=== PATIENT | male | born 1945 | race Caucasian/White ===

== ENCOUNTER 2018-12-14 09:18 | Emergency (ER) | payer OTHER ==
--- OUTSIDE RECORDS SUMMARY | 2018-12-14 09:21 | XMS REPORT ---
:1945 Author Organization eClinicalWorks Care Team Providers Name Role Phone Romero, Na Provider Role Unavailable Allergies No Known Allergies Problems Problem Type Condition Code Onset Dates Condition Status Problem Thrombocytopenia D69.6 Active Problem Family history of colon cancer Z80.0 Active Problem HTN (hypertension) I10 Active Assessment HTN (hypertension) I10 Active Problem Solitary lung nodule R91.1 Active Medications Medication Code System Code Instructions Start End Date Status Dosage Date Rony [facility] 62232831945 25 MG Orally Once Active TAKE 1 a day TABLET BY MOUTH EVERY DAY Results No Known Results Summary Purpose eClinicalWorks Submission
--- OUTSIDE RECORDS SUMMARY | 2018-12-14 09:21 | XMS REPORT ---
:1945 Author Organization [employer] Care Team Providers Name Role Phone Romero, Na Provider Role Unavailable Allergies, Adverse Reactions, Alerts Substance Reaction Event Type N.K.D.A. Info Not Available Non Drug Allergy Problems Problem Type Condition Code Onset Dates Condition Status Problem Thrombocytopenia D69.6 Active Problem Family history of colon cancer Z80.0 Active Problem HTN (hypertension) I10 Active Assessment Adult general medical exam Z00.00 Active Assessment Screening for colon cancer Z12.11 Active Problem Solitary lung nodule R91.1 Active Medications Medication Code System Code Instructions Start End Date Status Dosage Date Aspirin 81 [facility] 27690943396 81 MG Orally Once Active 1 tablet a day Cozaar [facility] 78981975427 25 MG Active TAKE 1 TABLET BY MOUTH EVERY DAY Results No Known Results Summary Purpose eClinicalWorks Submission
--- OUTSIDE RECORDS SUMMARY | 2018-12-14 09:21 | XMS REPORT ---
:1945 Author Organization [facility] Address [address] [place] [address] [address] [place] [address] Care Team Providers Name Role Phone Unavailable Unavailable Unavailable Payers Payer Name Policy Type Policy Number Effective Date Expiration Date Problems This patient has no known problems. Allergies, Adverse Reactions, Alerts Allergy Allergy Status Severity Reaction(s) Onset Inactive Treating Comments Name Type Date Date Clinician No Known DA Active U 2018-11 Allergies -03 00:00:0 0 No Known DA Active U 2017-01 Allergies -13 00:00:0 0 Medications This patient has no known medications. 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 No acute fracture is visualized. IMPRESSION: Postoperative exam as above. at 1842 Reported and signed by: Salvatore Shin M.D. CC: Katelynn Perez MD Technologist: CHRIS BAPTISTE (RT.R) Transcribed D/ (722) Sara [facility] NAME: AVERY BROUSSARD [address] [facility] PHYS: Katelynn Lee : 1945 AGE: 73 SEX: M [place], [place] [address] LOC: Y.502 A PHONE #: [phone] EXAM DATE: 12/01/2018 STATUS: DIS IN FAX #: [phone] RAD #: D/C DT 12/02/2018 PAGE 1 Signed Report Patient Name: AVERY BROUSSARD Unit No: [id number] EXAMS: CPT CODE: [id number] XR KNEE 1 OR 2 V RT [id number] <Continued> Orig Print D/T: S: 12/04/2018 (1845) [facility] NAME: AVERY BROUSSARD [address] [facility] PHYS: Katelynn Lee : 1945 AGE: 73 SEX: M [place] [address] LOC: Y.502 A PHONE #: [phone] EXAM DATE: 12/01/2018 STATUS: DIS IN FAX #: [phone] RAD #: D/C DT 12/02/2018 PAGE 2 Signed Report BASIC METABOLIC PANEL 2018-12-02 07:58:00 Test Item Value Reference Range Comments SODIUM (test code=NA) 139 mmol/L 136-145 POTASSIUM (test code=K) 4.3 mmol/L 3.5-5.1 CHLORIDE (test code=CL) 104.0 mmol/L 98-107 CARBON DIOXIDE (test code=CO2) 26.7 mmol/L 21-32 GLUCOSE (test code=GLU) 147 mg/dL 70-110 BLOOD UREA NITROGEN (test 14 mg/dL 7-18 code=BUN) GLOMERULAR FILTRATION RATE (test 70.2 >60 Unit of measure: mL/min/1.73 code=GFR) [id number] Range:Healthy Adults >90 mL/min/1.73 m2 For Chronic Kidney Disease: Stage II Mild Decrease in GFR 60-90 Stage III Moderate Decrease in GFR 30-59 Stage IV Severe Decrease in GFR 15-29 Stage V Kidney Failure <15 CREATININE (test code=CREAT) 1.04 mg/dL 0.55-1.30 CALCIUM (test code=CA) 7.5 mg/dL 8.2-10.1 HGB [id number] 07:29:00 Test Item Value Reference Range Comments HEMOGLOBIN (test code=HGB) 12.3 g/dL 12-16 HEMATOCRIT (test code=HCT) 36.6 % 37-47 - USG NDL PLACEMENT (Bxg/Asp)2018-11-20 09:49:00 Patient Name: AVERY BROUSSARD Unit No: [id number] EXAMS: CPT CODE: [id number] USG NDL PLACEMENT (Bxg/Asp) 76831 INDICATION: Right knee pain. PROCEDURE: Ultrasound guided cryoneurolysis of the anterior femoral cutaneous nerve and superior and inferior branches of the infrapatellar . APIGEE DEVELOPER: Dr. Cardoso. MEDICATIONS: 1 % Lidocaine local anesthesia CONTRAST: None. COMPLICATION: None immediately evident. DESCRIPTION: After the procedure, including indication and potential complications had been discussed with the patient and questions answered, written informed consent was obtained. The patient was then taken to the ultrasound suite and placed on the tablein supine position where skin of the right knee was evaluated sonographically. The skin was marked using ultrasound guidance. The skin was then prepped and draped sterilely. A time out was performed. After achieving 1% Lidocaine local anesthesia, the Iovera device, composed of three hollow closed-tip 27 gauge 6 mm needles, was introduced percutaneously atthe target site as marked sonographically. At each target site, the Iovera device was activated over a 60 second cycle, creating a cold zone at the target site. Following each cycle, the probe was removed and advanced to the next target site. No immediate complication were observed. The patient tolerated the procedure well and was subsequently discharged in stable condition. Preprocedural pain level: 7/ 10 Postprocedural painlevel: 1/ 10 IMPRESSION: Cryoneurolysis of the anterior femoral cutaneous nerve and superior and inferior branches of the infrapatellar as above. at 0949 Reported and signed by : Katherine Cardoso MD CC: Katelynn Perez MD Technologist: SOPHIE RETANA, FRANCES, RVT Transcribed D/T: 2018 (0959) [facility] NAME: AVERY BROUSSARD [address] [facility] PHYS: Katelynn Lee : 1945 AGE: 73 SEX: M [place] [address] LOC: Y.RAD PHONE #: [phone] EXAM DATE: 11/17/2018 STATUS: DEP CLI FAX #: [phone] RAD #: D/C DT PAGE 1 Signed Report Patient Name: AVERY BROUSSARD Unit No: [id number] EXAMS: CPT CODE: [id number] USG NDL PLACEMENT (Bxg/Asp) 20608 <Continued> Orig Print D/T: S: 11/20/2018 (0952) [facility] NAME: AVERY BROUSSARD [address] [facility] PHYS: Katelynn Lee : 1945 AGE: 73 SEX : M [place] [address] LOC: Y.RAD PHONE #: [phone] EXAM DATE: 11/17/2018 STATUS: DEP CLI FAX #: [phone] RAD #: D/C DT PAGE 2 Signed ReportGLYCOSYLATED HEMOGLOBIN (HA1C)2018-11-08 20:55: 00 Test Item Value Reference Range Comments GLYCOSYLATED HEMOGLOBIN 5.3 % 4.8-5.9 Any condition that shortens (HA1C) (test code=GLYHGB) erythocyte survival or decreasesmean erythrocyte age (e.g., recovery from acute blood loss,hemolytic anemai) will falsely lower HGBA1c resultsregardless of the method used. HGBA1c results frompatients with HbSS, HbCC and HbSc must be interpreted withcaution given the pathological processes, including anemia,increased red cell turnover, transfusion requirements, thatadversely impact HGBA1c as a marker of long-term glycemiccontrol. Alternative forms of testing such as fructosamineshould be considered for these patients.DONE AT: [address] [address] COMPREHENSIVE METABOLIC [id number] 12:24:00 Test Item Value Reference Range Comments SODIUM (test code=NA) 139 mmol/L 136-145 POTASSIUM (test code=K) 4.4 mmol/L 3.5-5.1 CHLORIDE (test code=CL) 103.0 mmol/L 98-107 CARBON DIOXIDE (test code=CO2) 29.9 mmol/L 21-32 GLUCOSE (test code=GLU) 93 mg/dL 70-110 BLOOD UREA NITROGEN (test 18 mg/dL 7-18 code=BUN) GLOMERULAR FILTRATION RATE 77.0 >60 Unit of measure: (test code=GFR) mL/min/1.73 [id number] Range:Healthy Adults >90 mL/min/1.73 m2 For Chronic Kidney Disease: Stage II Mild Decrease in GFR 60-90 Stage III Moderate Decrease in GFR 30-59 Stage IV Severe Decrease in GFR 15-29 Stage V Kidney Failure <15 CREATININE (test code=CREAT) 0.96 mg/dL 0.55-1.30 TOTAL PROTEIN (test code=PROT) 7.3 g/dL 6.4-8.2 ALBUMIN (test code=ALB) 4.0 g/dL 3.4-5.0 GLOBULIN (test code=GLOB) 3.3 g/dL 2.2-4.2 ALBUMIN/GLOBULIN RATIO (test 1.2 0.7-2.0 code=A/G) CALCIUM (test code=CA) 8.7 mg/dL 8.2-10.1 BILIRUBIN TOTAL (test 0.78 mg/dL 0.2-1.00 code=BILT) SGOT/AST (test code=AST) 26.0 U/L 15-37 SGPT/ALT (test code=ALT) 25.0 U/L 12-78 Please note new normal range. ALKALINE PHOSPHATASE TOTAL 97 U/L 46-116 (test code=ALKP) PROTHROMBIN [id number] 12:22:00 Test Item Value Reference Range Comments PROTHROMBIN TIME PATIENT 11.9 secs 10.1-12.5 (test code=PTP) INTERNATIONAL NORMAL RATIO 1.05 <2.0 RECOMMENDED THERAPEUTIC RANGE (test code=INR) FOR ORAL ANTICOAGULANTTREATMENT: CONDITION INRProphylaxis of venous thrombosis in 2.0 - 3.0 high-risk medical or surgical patientsTreatment of venous thrombosis 2.0 - 3.0Prevention of embolism 2.0 - 3.0Prevention of recurrent embolism, or 3.0 - 4.5 patients with mechanical prosthetic intravascular valves IS PATIENT ON ANTICOAGULANTS ? NHas Lab been notified if Patient is on Heparin Drip? NOTHROMBOPLASTIN TIME [id number] 12:22:00 Test Item Value Reference Range Comments PTT ACTIVATED (test code=APTT) 32.2 secs 24.9-37.0 IS PATIENT ON ANTICOAGULANTS ? NHas Lab been notified if Patient is on Heparin Drip? NOURINALYSIS [id number] 12:15:00 Test Item Value Reference Range Comments UA COLOR (test code=COLU) YELLOW YELLOW UA APPEARANCE (test code=APPU) CLEAR CLEAR UA GLUCOSE DIPSTICK (test code=DGLUU) NEGATIVE NEGATIVE UA BILIRUBIN DIPSTICK (test code=BILU) NEGATIVE NEGATIVE UA KETONE DIPSTICK (test code=KETU) NEGATIVE mg/dL NEGATIVE UA SPECIFIC GRAVITY (test code=SGU) 1.015 1.003-1.035 UA BLOOD DIPSTICK (test code=JAI) NEGATIVE NEGATIVE UA PH DIPSTICK (test code=FELIX) 5.5 >6.5 UA PROTEIN DIPSTICK (test code=PROU) NEGATIVE mg/dL NEG UA UROBILINIOGEN DIPSTICK (test code=URO) 0.2 mg/dL NORM UA NITRITE DIPSTICK (test code=ARANZA) NEGATIVE NEG UA LEUKOCYTE ESTERASE DIPSTICK (test NEGATIVE NEGATIVE code=LEUU) UA WBC (test code=WBCU) <5.0 /HPF 0-2 UA RBC (test code=RBCU) 0-2 /HPF 0-2 UA EPITHELIAL CELLS (test code=EPIU) RARE /HPF 0-2 UA BACTERIA (test code=BACU) FEW /HPF NONE CBC W/AUTO [id number] 12:09:00 Test Item Value Reference Range Comments WHITE BLOOD CELL (test code=WBC) 4.1 K/mm3 5.7-10.5 RED BLOOD CELL (test code=RBC) 4.89 M/mm3 4.2-5.4 HEMOGLOBIN (test code=HGB) 15.7 g/dL 12-16 HEMATOCRIT (test code=HCT) 47.3 % 37-47 MEAN CELL VOLUME (test code=MCV) 97 fL 80-98 MEAN CELL HGB (test code=MCH) 32.1 pg 27-34 MEAN CELL HGB CONCENTRATION (test code=MCHC) 33.2 g/dL 30.8-34.1 RED CELL DISTRIBUTION WIDTH (test code=RDW) 13.2 % 11-16 PLT (test code=PLT) 191 K/mm3 130-400 MEAN PLATELET VOLUME (test code=MPV) 11.1 fL 8.9-12.1 NEUTROPHIL % (test code=NT%) 45.7 % 45-70 LYMPHOCYTE % (test code=LY%) 43.9 % 20-40 MONOCYTE % (test code=MO%) 8.5 % 3-10 EOSINOPHIL % (test code=EO%) 0.7 % 1-5 BASOPHIL % (test code=BA%) 1.0 % 0.0-1.1 NEUTROPHIL # (test code=NT#) 1.87 K/mm3 2.00-7.50 LYMPHOCYTE # (test code=LY#) 1.80 K/mm3 1.50-4.00 MONOCYTE # (test code=MO#) 0.35 K/mm3 0.2-0.8 EOSINOPHIL # (test code=EO#) 0.03 K/mm3 0.04-0.4 BASOPHIL # (test code=BA#) 0.04 K/mm3 0.02-0.10 MANUAL DIFF REQUIRED (test code=MDIFF) NO MANUAL DIFF NUCLEATED RED BLOOD CELL (test code=NRBC) 0 % 0-0 - XR FLUORO [id number] 10:10:00 Patient Name: AVERY BROUSSARD Unit No: [id number] EXAMS: CPT CODE: [id number] XR FLUORO NDL 00100 FLUOROSCOPICALLY GUIDED right prosthetic knee joint ASPIRATION COMMENT: After informed consent was obtained a 22-gauge needle is inserted into right prosthetic knee joint under fluoroscopic control using sterile technique. 10 mL of fluid was aspirated. This is sent to the lab for analysis. The patient tolerated the procedure well. 0.5 minutes of fluoroscopy time was used on this exam. at 1010 Reported and signed by: Katherine Cardoso MD CC: Mono Messina Technologist: MARTHA SANDOVAL RT(R) Transcribed D/ (1010) tSARA [facility] NAME: AVERY BROUSSARD[address] [facility] PHYS: Mono Murphy : 1945 AGE: 73 SEX: M [place], [place] [address] LOC: Y.RAD PHONE #: [phone] EXAM DATE: 09/15/2018 STATUS: DEP [place] #: [phone] RAD #: D/C DT PAGE 1 Signed Report Patient Name: AVERY BROUSSARD Unit No: [id number] EXAMS: CPT CODE: [id number] XR FLUORO NDL 27277 < Continued> Orig Print D/T: S:09/21/2018 (1013) [facility] NAME: AVERY BROUSSARD [address] [facility] PHYS : Mono Murphy : AGE: 73 SEX: M [place], [place] [address] LOC: Y.RAD PHONE #: [phone] EXAM DATE: STATUS: DEP CLI FAX #: [phone] RAD #: D/C DT PAGE [address] F[address] CELL [id number] 11:48:00 Test Item Value Reference Range Comments SYNOVIAL FLD COLOR (test code=COLSY) BLOODY LT. YELLOW SYNOVIAL FLD APPEARANCE (test code=APPSY) BLOODY CLEAR SYNOVIAL FLD VOLUME (test code=VOLSY) 2 mL SYNOVIAL FLD WBC (test code=WBCSY) 1552.000 /MM3 0-200 SYNOVIAL FLD RBC (test code=RBCSY) 1012123.000 /mm3 0-2 SYNOVIAL FLD POLY (test code=POLYSY) 6 % 0-25 SYNOVIAL FLD LYMPHOCYTE (test code=LYMPHSY) 93 % 0-78 SYNOVIAL FLD MONOCYTE (test code=MONOSY) 1 % 0-71 SPECIMEN COMMENT: ASPIRATION OF THE RT KNEE DONE BY DR. JC FLD CELL [id number] 10:56:00 Test Item Value Reference Range Comments SYNOVIAL FLD COLOR (test code=COLSY) LT. YELLOW SYNOVIAL FLD APPEARANCE (test code=APPSY) CLEAR SYNOVIAL FLD VOLUME (test code=VOLSY) mL SYNOVIAL FLD WBC (test code=WBCSY) 1552.000 /MM3 0-200 SYNOVIAL FLD RBC (test code=RBCSY) 2232482.000 /mm3 0-2 SPECIMEN COMMENT: ASPIRATION OF THE RT KNEE DONE BY DR. SANCHES W/AUTO [id number] 13:44:00 Test Item Value Reference Range Comments WHITE BLOOD CELL (test code=WBC) 4.7 K/mm3 5.7-10.5 RED BLOOD CELL (test code=RBC) 4.92 M/mm3 4.2-5.4 HEMOGLOBIN (test code=HGB) 15.9 g/dL 12-16 HEMATOCRIT (test code=HCT) 48.7 % 37-47 MEAN CELL VOLUME (test code=MCV) 99 fL 80-98 MEAN CELL HGB (test code=MCH) 32.3 pg 27-34 MEAN CELL HGB CONCENTRATION (test code=MCHC) 32.6 g/dL 30.8-34.1 RED CELL DISTRIBUTION WIDTH (test code=RDW) 13.2 % 11-16 PLT (test code=PLT) 182 K/mm3 130-400 MEAN PLATELET VOLUME (test code=MPV) 10.8 fL 8.9-12.1 NEUTROPHIL % (test code=NT%) 51.9 % 45-70 LYMPHOCYTE % (test code=LY%) 39.2 % 20-40 MONOCYTE % (test code=MO%) 7.4 % 3-10 EOSINOPHIL % (test code=EO%) 0.2 % 1-5 BASOPHIL % (test code=BA%) 1.1 % 0.0-1.1 NEUTROPHIL # (test code=NT#) 2.45 K/mm3 2.00-7.50 LYMPHOCYTE # (test code=LY#) 1.85 K/mm3 1.50-4.00 MONOCYTE # (test code=MO#) 0.35 K/mm3 0.2-0.8 EOSINOPHIL # (test code=EO#) 0.01 K/mm3 0.04-0.4 BASOPHIL # (test code=BA#) 0.05 K/mm3 0.02-0.10 MANUAL DIFF REQUIRED (test code=MDIFF) NO MANUAL DIFF NUCLEATED RED BLOOD CELL (test code=NRBC) 0 % 0-0 SED [id number] 13:44:00 Test Item Value Reference Range Comments SED RATE (test code=SEDW) 5 mm/hr 0-15 C REACTIVE [id number] 13:00:00 Test Item Value Reference Range Comments C REACTIVE PROTEIN (test code=CRP) < 0.2 mg/dL <0.9 CBC W/AUTO [id number] 12:39:00 Test Item Value Reference Range Comments WHITE BLOOD CELL (test code=WBC) 4.7 K/mm3 5.7-10.5 RED BLOOD CELL (test code=RBC) 4.92 M/mm3 4.2-5.4 HEMOGLOBIN (test code=HGB) 15.9 g/dL 12-16 HEMATOCRIT (test code=HCT) 48.7 % 37-47 MEAN CELL VOLUME (test code=MCV) 99 fL 80-98 MEAN CELL HGB (test code=MCH) 32.3 pg 27-34 MEAN CELL HGB CONCENTRATION (test code=MCHC) 32.6 g/dL 30.8-34.1 RED CELL DISTRIBUTION WIDTH (test code=RDW) 13.2 % 11-16 PLT (test code=PLT) 182 K/mm3 130-400 MEAN PLATELET VOLUME (test code=MPV) 10.8 fL 8.9-12.1 NEUTROPHIL % (test code=NT%) 51.9 % 45-70 LYMPHOCYTE % (test code=LY%) 39.2 % 20-40 MONOCYTE % (test code=MO%) 7.4 % 3-10 EOSINOPHIL % (test code=EO%) 0.2 % 1-5 BASOPHIL % (test code=BA%) 1.1 % 0.0-1.1 NEUTROPHIL # (test code=NT#) 2.45 K/mm3 2.00-7.50 LYMPHOCYTE # (test code=LY#) 1.85 K/mm3 1.50-4.00 MONOCYTE # (test code=MO#) 0.35 K/mm3 0.2-0.8 EOSINOPHIL # (test code=EO#) 0.01 K/mm3 0.04-0.4 BASOPHIL # (test code=BA#) 0.05 K/mm3 0.02-0.10 MANUAL DIFF REQUIRED (test code=MDIFF) NO MANUAL DIFF NUCLEATED RED BLOOD CELL (test code=NRBC) 0 % 0-0 SED [id number] 12:39:00 Test Item Value Reference Range Comments SED RATE (test code=SEDW) mm/hr 0-15
[2018-12-14] MEDS ORDERED: DIPHENHYDRAMINE 25 MG TAB/CAP ONE (10:11)
[2018-12-14] MEDS ORDERED: METHYLPREDNISOLONE 125 MG INJ ONE (10:11)
[2018-12-14] MEDS ORDERED: FAMOTIDINE 20 MG TAB ONE (10:11)
--- NOTE | 2018-12-14 11:13 | ER ---
Nurse's Notes [facility] Name: Noah Medina Age: 73 yrs Sex: Male : 1945 Arrival Date: 12/14/2018 Time: 09:20 Bed 19 Private MD: Maureen Romero Diagnosis: Urticaria Presentation: 12/14 09:21 Presenting complaint: Patient states: hives since Tuesday on face and ears. Sent by urgent care today. Transition of care: patient was not received from another setting of care. Onset: The symptoms/episode began/occurred suddenly, 3 day(s) ago. Anaphylaxis evaluation, no signs or symptoms of anaphylaxis were noted. Onset of symptoms was December 11, 2018. Risk Assessment: Do you want to hurt yourself or someone else? Patient reports no desire to harm self or others. Initial Sepsis Screen: Does the patient meet any 2 criteria? No. Patient's initial sepsis screen is negative. Does the patient have a suspected source of infection? No. Patient's initial sepsis screen is negative. Care prior to arrival: None. 09:21 Method Of Arrival: Ambulatory 09:21 Acuity: CLAIRE 4 Triage Assessment: 09:21 General: Appears in no apparent distress. uncomfortable, well developed, Behavior is sv calm, cooperative, appropriate for age. Pain: Complains of pain in face Pain currently is 7 out of 10 on a pain scale. Quality of pain is described as itching Pain began Tuesday Is intermittent. Neuro: Level of Consciousness is awake, alert, obeys commands, Oriented to person, place, time, situation, Moves all extremities. Full function Gait is steady, Speech is normal. Respiratory: Airway is patent Respiratory effort is even, unlabored, Respiratory pattern is regular, symmetrical. Derm: Skin is pink, warm \T\ dry. Rash noted that is itchy, red, raised, urticaria, on face, right ear, left ear and neck. Musculoskeletal: Range of motion: intact in all extremities. Historical: - Allergies: 09:31 No Known Allergies; - Home Meds: 09:33 Hydrocodone-Acetaminophen Oral [Active]; Stool Softener oral oral [Active]; aspirin 81 sv mg Oral chew 1 tab once daily [Active]; tramadol 50 mg Oral tab [Active]; tizanidine 2 mg oral cap [Active]; meloxicam 7.5 mg oral tab [Active]; cefadroxil 500 mg oral cap [Active]; - PMHx: 09:31 None; sv - PSHx: 09:31 Knee surgery; sv - Immunization history:: Adult Immunizations up to date, Flu vaccine is not up to date. - Social history:: Smoking status: Patient/guardian denies using tobacco, Patient/guardian denies using alcohol. - Ebola Screening: : No symptoms or risks identified at this time. Screenin:34 Abuse screen: Denies threats or abuse. Denies injuries from another. Nutritional sv screening: No deficits noted. Tuberculosis screening: No symptoms or risk factors identified. Fall Risk None identified. Assessment: 10:00 Reassessment: Patient appears in no apparent distress at this time. No changes from previously documented assessment. Patient and/or family updated on plan of care and expected duration. Pain level reassessed. Patient is alert, oriented x 3, equal unlabored respirations, skin warm/dry/pink. 11:17 Reassessment: Patient appears in no apparent distress at this time. Patient and/or sv family updated on plan of care and expected duration. Pain level reassessed. Patient is alert, oriented x 3, equal unlabored respirations, skin warm/dry/pink. Patient states feeling better. Patient states symptoms have improved. Vital Signs: 09:31 BP 116 / 69; Pulse 91; Resp 18; Temp 98.2(O); Pulse Ox 98% on R/A; Weight 92.99 kg; sv Height 5 ft. 9 in. (175.26 cm); Pain 7/10; 09:31 Body Mass Index 30.27 (92.99 kg, 175.26 cm) sv ED Course: 09:20 Patient arrived in ED. as 09:21 Maureen Romero MD is Private Physician. as 09:28 [facility] pm1 09:28 Aaron Smith MD is Attending Physician. pm1 09:28 Muriel Ko RN is Primary Nurse. sv 09:30 Triage completed. sv 09:32 Arm band placed on. sv 09:34 Patient has correct armband on for positive identification. Bed in low position. Call sv light in reach. Adult w/ patient. Pulse ox on. NIBP on. Door closed. Head of bed elevated. 11:00 Warm blanket given. campus monitor on. Pulse ox on. NIBP on. mh5 11:19 No provider procedures requiring assistance completed. Patient did not have IV access sv during this emergency room visit. Administered Medications: 10:00 Drug: SOLU-Medrol 125 mg Route: IM; Site: left gluteus; sv 11:02 Follow up: Response: No adverse reaction sv 10:00 Drug: Benadryl 25 mg Route: PO; sv 11:02 Follow up: Response: No adverse reaction sv 10:00 Drug: Pepcid 20 mg Route: PO; sv 11:02 Follow up: Response: No adverse reaction sv Outcome: 11:11 Discharge ordered by . pm1 11:19 Discharged to home ambulatory, with friend. sv 11:19 Condition: stable 11:19 Discharge instructions given to patient, Instructed on discharge instructions, follow up and referral plans. medication usage, Demonstrated understanding of instructions, follow-up care, medications, Prescriptions given X 3. 11:19 Patient left the ED. sv Signatures: Muriel Ko RN RN Carmen Riggs Patrick, NP STORAGE AND BACKUP ADMINISTRATOR pm1 Ashlee Mejias [facility]
--- NOTE | 2018-12-14 11:13 | EDPHYS ---
Physician Documentation [facility] Name: Noah Medina Age: 73 yrs Sex: Male : 1945 Arrival Date: 12/14/2018 Time: 09:20 Bed 19 Private MD: Maureen Romero ED Physician Aaron Smith HPI: 12/14 10:10 This 73 yrs old Male presents to ER via Ambulatory with complaints of Hives. pm1 18:16 The patient's rash thought to be caused by an unknown cause. The rash is located on the pm1 face. The rash can be described as urticarial. Onset: The symptoms/episode began/occurred 3 day(s) ago. Associated signs and symptoms: Pertinent positives: itching, Pertinent negatives: difficulty breathing, fever, swelling of lips, swelling of throat, swelling of tongue, vomiting, wheezing. Severity of symptoms: in the emergency department the symptoms are worse. Treatment given at home: none. The patient has not experienced similar symptoms in the past. The patient has been recently seen by a physician: 2 week(s) ago, right knee replacement. Patient with new exposure to facial soap and tramadol. Historical: - Allergies: 09: No Known Allergies; sv - Home Meds: 09:33 Hydrocodone-Acetaminophen Oral [Active]; Stool Softener oral oral [Active]; aspirin 81 sv mg Oral chew 1 tab once daily [Active]; tramadol 50 mg Oral tab [Active]; tizanidine 2 mg oral cap [Active]; meloxicam 7.5 mg oral tab [Active]; cefadroxil 500 mg oral cap [Active]; - PMHx: 09:31 None; sv - PSHx: 09:31 Knee surgery; sv - Immunization history:: Adult Immunizations up to date, Flu vaccine is not up to date. - Social history:: Smoking status: Patient/guardian denies using tobacco, Patient/guardian denies using alcohol. - Ebola Screening: : No symptoms or risks identified at this time. ROS: 18:16 Constitutional: Negative for fever, chills, and weight loss, Eyes: Negative for injury, pm1 pain, redness, and discharge, ENT: Negative for injury, pain, and discharge, Neck: Negative for injury, pain, and swelling, Cardiovascular: Negative for chest pain, palpitations, and edema, Respiratory: Negative for shortness of breath, cough, wheezing, and pleuritic chest pain, Abdomen/GI: Negative for abdominal pain, nausea, vomiting, diarrhea, and constipation, Back: Negative for injury and pain, : Negative for injury, bleeding, discharge, and swelling, MS/Extremity: Negative for injury and deformity. 18:16 Neuro: Negative for headache, weakness, numbness, tingling, and seizure. 18:16 Skin: Positive for rash, of the face. Exam: 18:16 Constitutional: This is a well developed, well nourished patient who is awake, alert, pm1 and in no acute distress. Head/Face: Normocephalic, atraumatic. Eyes: Pupils equal round and reactive to light, extra-ocular motions intact. Lids and lashes normal. Conjunctiva and sclera are non-icteric and not injected. Cornea within normal limits. Periorbital areas with no swelling, redness, or edema. ENT: Nares patent. No nasal discharge, no septal abnormalities noted. Tympanic membranes are normal and external auditory canals are clear. Oropharynx with no redness, swelling, or masses, exudates, or evidence of obstruction, uvula midline. Mucous membranes moist. Neck: Trachea midline, no thyromegaly or masses palpated, and no cervical lymphadenopathy. Supple, full range of motion without nuchal rigidity, or vertebral point tenderness. No Meningismus. Chest/axilla: Normal chest wall appearance and motion. Nontender with no deformity. No lesions are appreciated. Cardiovascular: Regular rate and rhythm with a normal S1 and S2. No gallops, murmurs, or rubs. Normal PMI, no JVD. No pulse deficits. Respiratory: Lungs have equal breath sounds bilaterally, clear to auscultation and percussion. No rales, rhonchi or wheezes noted. No increased work of breathing, no retractions or nasal flaring. Abdomen/GI: Soft, non-tender, with normal bowel sounds. No distension or tympany. No guarding or rebound. No evidence of tenderness throughout. Back: No spinal tenderness. No costovertebral tenderness. Full range of motion. 18:16 Skin: Appearance: normal except for affected area, consistent with urticaria, on the face and right ear and left ear. Vital Signs: 09:31 BP 116 / 69; Pulse 91; Resp 18; Temp 98.2(O); Pulse Ox 98% on R/A; Weight 92.99 kg; sv Height 5 ft. 9 in. (175.26 cm); Pain 7/10; 09:31 Body Mass Index 30.27 (92.99 kg, 175.26 cm) sv MDM: 09:37 Patient medically screened. pm1 11:10 Data reviewed: vital signs. Counseling: I had a detailed discussion with the patient pm1 and/or guardian regarding: the historical points, exam findings, and any diagnostic results supporting the discharge/admit diagnosis, the need for outpatient follow up, to return to the emergency department if symptoms worsen or persist or if there are any questions or concerns that arise at home. Administered Medications: 10:00 Drug: SOLU-Medrol 125 mg Route: IM; Site: left gluteus; sv 11:02 Follow up: Response: No adverse reaction sv 10:00 Drug: Benadryl 25 mg Route: PO; sv 11:02 Follow up: Response: No adverse reaction sv 10:00 Drug: Pepcid 20 mg Route: PO; sv 11:02 Follow up: Response: No adverse reaction sv Disposition: 15:28 Co-signature as Attending Physician, Aaron Smith MD I agree with the assessment and kdr plan of care. Disposition: 12/14/18 11:11 Discharged to Home. Impression: Urticaria. - Condition is Stable. - Discharge Instructions: Hives. - Prescriptions for Benadryl 25 mg Oral Capsule - take 1 capsule by ORAL route every 6 hours As needed; 30 tablet. Pepcid 20 mg Oral Tablet - take 1 tablet by ORAL route every 12 hours for 5 days; 10 tablet. Medrol ([place]) 4 mg Oral Tablets, Dose Pack - take 1 tablet by ORAL route as directed - follow package instructions; 1 packet. - Medication Reconciliation Form, Thank You Letter, Antibiotic Education, Prescription Opioid Use form. - Follow up: Emergency Department; When: As needed; Reason: Worsening of condition. Follow up: Private Physician; When: 2 - 3 days; Reason: Recheck today's complaints, Continuance of care, Re-evaluation by your physician. - Problem is new. - Symptoms have improved. Signatures: Muriel Ko RN RN sv Rittger, Kevin, MD MD kdr Marinas Satinder, AUTOMOTIVE WELDER AUTOMOTIVE WELDER pm1 Corrections: (The following items were deleted from the chart) 11:19 11:11 12/14/2018 11:11 Discharged to Home. Impression: Urticaria. Condition is Stable. sv Forms are Medication Reconciliation Form, Thank You Letter, Antibiotic Education, Prescription Opioid Use. Follow up: Emergency Department; When: As needed; Reason: Worsening of condition. Follow up: Private Physician; When: 2 - 3 days; Reason: Recheck today's complaints, Continuance of care, Re-evaluation by your physician. Problem is new. Symptoms have improved. pm1
[2018-12-14 11:23] VITALS: BP 116/69; TEMP 98.2; O2SAT 98
== END 2018-12-14 11:19 | disposition home or self-care (01) ==
LOC: ER 09:18
DX: L50.9 Urticaria, unspecified (principal); Z79.82 Long term (current) use of aspirin
CPT/HCPCS: 96372; 99284; J2930

== ENCOUNTER 2018-12-17 09:00 | Emergency (ER) | payer OTHER ==
--- OUTSIDE RECORDS SUMMARY | 2018-12-17 09:03 | XMS REPORT ---
[...] Start End Date Status Dosage Date Rony [facility] [id number] 25 MG Orally Once Active TAKE 1 a day TABLET BY MOUTH EVERY DAY Results No Known Results Summary Purpose eClinicalWorks Submission
--- OUTSIDE RECORDS SUMMARY | 2018-12-17 09:03 | XMS REPORT ---
:1945 Author Organization [facility] Address [address] [place] [address] [address]. 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 No acute fracture is visualized. IMPRESSION: Postoperative exam as above. at 1842 Reported and signed by: Salvatore Shin M.D. CC: Katelynn Perez MD Technologist: CHRIS BAPTISTE (RT.R) Transcribed D/ (030) Sara [facility] NAME: AVERY BROUSSARD [address] [facility] PHYS: Katelynn Lee : 1945 AGE: 73 SEX: M [place], [place] [address] LOC: Y.502 A PHONE #: [phone] EXAM DATE: 12/01/2018 STATUS: DIS IN FAX #: [phone] RAD #: D/C DT 12/02/2018 PAGE 1 Signed Report Patient Name: AVERY BROUSSARD Unit No: [id number] EXAMS: CPT CODE: [id number] XR KNEE 1 OR 2 V RT [id number] <Continued> Orig Print D/T: S: 12/04/2018 (1845) [facility] NAME: AVERY BROUSSARD [address] [facility] PHYS: Katelynn Lee : 1945 AGE: 73 SEX: M [place] [address] LOC: Y.502 A PHONE #: [phone] EXAM DATE: 12/01/2018 STATUS: DIS IN FAX #: [phone] RAD #: D/C DT 12/02/2018 PAGE 2 [...] 70.2 >60 Unit of measure: mL/min/1.73 code=GFR) [id number] Range:Healthy Adults >90 mL/min/1.73 m2 For Chronic Kidney Disease: Stage II Mild Decrease in GFR 60-90 Stage III Moderate Decrease in GFR 30-59 Stage IV Severe Decrease in GFR 15-29 Stage V Kidney Failure <15 CREATININE (test code=CREAT) 1.04 mg/dL 0.55-1.30 CALCIUM (test code=CA) 7.5 mg/dL 8.2-10.1 HGB [id number] 07:29:00 Test Item Value Reference Range Comments HEMOGLOBIN (test code=HGB) 12.3 g/dL 12-16 HEMATOCRIT (test code=HCT) 36.6 % 37-47 - USG NDL PLACEMENT (Bxg/Asp)2018-11-20 09:49:00 Patient Name: AVERY BROUSSARD Unit No: [id number] EXAMS: CPT CODE: [id number] USG NDL PLACEMENT (Bxg/Asp) 67693 INDICATION: Right knee pain. PROCEDURE: Ultrasound guided cryoneurolysis of the anterior femoral cutaneous nerve and superior and inferior branches of the infrapatellar . CLINICAL SALES CONSULTANT: Dr. Cardoso. MEDICATIONS: 1 % Lidocaine local [...] SOPHIE RETANA, FRANCES, RVT Transcribed D/T: 2018 (0978) Jose [facility] NAME: AVERY BROUSSARD [address] [facility] PHYS: Katelynn Lee : 1945 AGE: 73 SEX: M [place] [address] LOC: Y.RAD PHONE #: [phone] EXAM DATE: 11/17/2018 STATUS: DEP CLI FAX #: [phone] RAD #: D/C DT PAGE 1 Signed Report Patient Name: AVERY BROUSSARD Unit No: [id number] EXAMS: CPT CODE: [id number] USG NDL PLACEMENT (Bxg/Asp) 30353 <Continued> Orig Print D/T: S: 11/20/2018 (0952) [facility] NAME: AVERY BROUSSARD [address] [facility] PHYS: Katelynn Lee : 1945 AGE: 73 SEX : M [place] [address] LOC: Y.RAD PHONE #: [phone] EXAM DATE: 11/17/2018 STATUS: DEP CLI FAX #: [phone] RAD #: D/C DT PAGE 2 Signed [...] fructosamineshould be considered for these patients.DONE AT: [address] [address] COMPREHENSIVE METABOLIC [id number] 12:24:00 Test Item Value Reference Range Comments SODIUM (test code=NA) 139 mmol/L 136-145 POTASSIUM (test code=K) 4.4 mmol/L 3.5-5.1 CHLORIDE (test code=CL) 103.0 mmol/L 98-107 CARBON DIOXIDE (test code=CO2) 29.9 mmol/L 21-32 GLUCOSE (test code=GLU) 93 mg/dL 70-110 BLOOD UREA NITROGEN (test 18 mg/dL 7-18 code=BUN) GLOMERULAR FILTRATION RATE 77.0 >60 Unit of measure: (test code=GFR) mL/min/1.73 [id number] Range:Healthy Adults >90 mL/min/1.73 m2 For Chronic [...] TOTAL 97 U/L 46-116 (test code=ALKP) PROTHROMBIN [id number] 12:22:00 Test Item Value Reference Range Comments [...] Patient is on Heparin Drip? NOTHROMBOPLASTIN TIME [id number] 12:22:00 Test Item Value Reference Range Comments PTT ACTIVATED (test code=APTT) 32.2 secs 24.9-37.0 IS PATIENT ON ANTICOAGULANTS ? NHas Lab been notified if Patient is on Heparin Drip? NOURINALYSIS [id number] 12:15:00 Test Item Value Reference Range Comments [...] (test code=BACU) FEW /HPF NONE CBC W/AUTO [id number] 12:09:00 Test Item Value Reference Range Comments [...] code=NRBC) 0 % 0-0 - XR FLUORO [id number] 10:10:00 Patient Name: AVERY BROUSSARD Unit No: [id number] EXAMS: CPT CODE: [id number] XR FLUORO NDL 11321 FLUOROSCOPICALLY GUIDED right prosthetic knee joint ASPIRATION [...] MARTHA SANDOVAL RT(R) Transcribed D/ (1010) tSARA [facility] NAME: AVERY BROUSSARD[address] [facility] PHYS: Mono Murphy : 1945 AGE: 73 SEX: M [place], [place] [address] LOC: Y.RAD PHONE #: [phone] EXAM DATE: 09/15/2018 STATUS: DEP [place] #: [phone] RAD #: D/C DT PAGE 1 Signed Report Patient Name: AVERY BROUSSARD Unit No: [id number] EXAMS: CPT CODE: [id number] XR FLUORO NDL 94238 < Continued> Orig Print D/T: S:09/21/2018 (1013) [facility] NAME: AVERY BROUSSARD [address] [facility] PHYS : Mono Murphy : AGE: 73 SEX: M [place], [place] [address] LOC: Y.RAD PHONE #: [phone] EXAM DATE: STATUS: DEP CLI FAX #: [phone] RAD #: D/C DT PAGE [address] FLD CELL [id number] 11:48:00 Test Item Value Reference Range Comments SYNOVIAL FLD COLOR (test code=COLSY) BLOODY LT. YELLOW SYNOVIAL FLD APPEARANCE (test code=APPSY) BLOODY CLEAR SYNOVIAL FLD VOLUME (test code=VOLSY) 2 mL SYNOVIAL FLD WBC (test code=WBCSY) 1552.000 /MM3 0-200 SYNOVIAL FLD RBC (test code=RBCSY) 5790505.000 /mm3 0-2 SYNOVIAL FLD POLY (test code=POLYSY) 6 % 0-25 SYNOVIAL FLD LYMPHOCYTE (test code=LYMPHSY) 93 % 0-78 SYNOVIAL FLD MONOCYTE (test code=MONOSY) 1 % 0-71 SPECIMEN COMMENT: ASPIRATION OF THE RT KNEE DONE BY DR. JC FLD CELL [id number] 10:56:00 Test Item Value Reference Range Comments SYNOVIAL FLD COLOR (test code=COLSY) LT. YELLOW SYNOVIAL FLD APPEARANCE (test code=APPSY) CLEAR SYNOVIAL FLD VOLUME (test code=VOLSY) mL SYNOVIAL FLD WBC (test code=WBCSY) 1552.000 /MM3 0-200 SYNOVIAL FLD RBC (test code=RBCSY) 3795314.000 /mm3 0-2 SPECIMEN COMMENT: ASPIRATION OF THE RT KNEE DONE BY DR. SANCHES W/AUTO [id number] 13:44:00 Test Item Value Reference Range Comments [...] CELL (test code=NRBC) 0 % 0-0 SED [id number] 13:44:00 Test Item Value Reference Range Comments SED RATE (test code=SEDW) 5 mm/hr 0-15 C REACTIVE [id number] 13:00:00 Test Item Value Reference Range Comments C REACTIVE PROTEIN (test code=CRP) < 0.2 mg/dL <0.9 CBC W/AUTO [id number] 12:39:00 Test Item Value Reference Range Comments [...] CELL (test code=NRBC) 0 % 0-0 SED [id number] 12:39:00 Test Item Value Reference Range Comments SED RATE (test code=SEDW) mm/hr 0-15
--- OUTSIDE RECORDS SUMMARY | 2018-12-17 09:03 | XMS REPORT ---
[...] End Date Status Dosage Date Aspirin 81 [facility] [id number] 81 MG Orally Once Active 1 tablet a day Cozaar [facility] [id number] 25 MG Active TAKE 1 TABLET BY MOUTH EVERY DAY Results No Known Results Summary Purpose eClinicalWorks Submission
[2018-12-17] MEDS ORDERED: FAMOTIDINE 20 MG TAB ONE (09:41)
[2018-12-17] MEDS ORDERED: DEXAMETHASONE 10 MG/ML VIAL ONE (09:41)
[2018-12-17 11:36] LABS: Absolute Lymphocytes (CBC) 0.8 K/uL (0.7-4.9); Absolute Monocytes 0.3 K/uL (0.1-1.3); Absolute Neutrophil 4.5 K/uL (1.8-8.0); Basophils % 0.2 % (0-1.3); Eosinophils % 0.1 % (0-4.4); Hematocrit 40.3 % (39.6-49.0); Lymphocytes % 14.7 % (15.3-44.8); MPV 8.8 fL (7.6-11.3); Monocytes % 4.8 % (3.3-12.3); RBC Red Blood Cell Count 4.16 M/uL (4.33-5.43)
[2018-12-17 12:06] LABS: Potassium 4.2 mmol/L (3.5-5.1)
[2018-12-17 12:10] LABS: Albumin 3.2 g/dL (3.4-5.0)
[2018-12-17 12:11] LABS: Bilirubin Total 0.6 mg/dL (0.2-1.0); Protein, Total 6.6 g/dL (6.4-8.2)
[2018-12-17 13:02] LABS: Protime INR 1.1
[2018-12-17 13:17] LABS: Magnesium 2.5 mg/dL (1.8-2.4); NT PRO-BNP 95 pg/mL (<125); Troponin (Emerg Dept Use Only) < 0.02 ng/mL (0.0-0.045)
--- NOTE | 2018-12-17 13:25 | RAD REPORT ---
EXAM DESCRIPTION: CT - Chest For Pe Angio - 12/17/2018 1:18 pm CLINICAL HISTORY: Chest pain. SOB COMPARISON: Thorax Wo Con dated 05/13/2017 TECHNIQUE: CT angiogram of the pulmonary arteries was performed with MIP. All CT scans are performed using dose optimization technique as appropriate and may include automated exposure control or mA/KV adjustment according to patient size. FINDINGS: No evidence of pulmonary thromboembolism. No acute aortic finding demonstrated. Mild interstitial pulmonary edema is seen with mild linear atelectasis or small area of aspiration in the left lung base. No significant pericardial or pleural fluid. No concerning bony finding. IMPRESSION: No evidence of pulmonary thromboembolism. Small area of atelectasis or aspiration is seen in the medial left lung base.
--- NOTE | 2018-12-17 13:31 | EDPHYS ---
Physician Documentation [facility] Name: Noah Medina Age: 73 yrs Sex: Male : 1945 Arrival Date: 12/17/2018 Time: 09:02 Bed 6 Private MD: ED Physician Suman Tuttle HPI: 12/17 13:28 This 73 yrs old Male presents to ER via Ambulatory with complaints of Rash, nh Itching. 13:28 The patient's rash thought to be caused by an unknown cause. The rash is located on the nh body diffusely. The rash can be described as erythematous, flat, urticarial. Onset: The symptoms/episode began/occurred 1 week(s) ago. Associated signs and symptoms: Pertinent positives: itching. Severity of symptoms: At their worst the symptoms were moderate just prior to arrival, in the emergency department the symptoms are unchanged. The patient has not experienced similar symptoms in the past. The patient has not recently seen a physician. Historical: - Home Meds: 09:30 aspirin 81 mg Oral chew 1 tab once daily [Active]; meloxicam 7.5 mg Oral tab [Active]; iw Hydrocodone-Acetaminophen Oral [Active]; tizanidine 2 mg Oral cap [Active]; tramadol 50 mg Oral tab [Active]; Stool Softener Oral [Active]; cefadroxil 500 mg Oral cap [Active]; - PMHx: 09:30 Hypertension; iw - PSHx: 09:30 right knee; Hernia repair; iw - Immunization history:: Adult Immunizations not up to date. - Social history:: Smoking status: Patient/guardian denies using tobacco. - Ebola Screening: : Patient negative for fever greater than or equal to 101.5 degrees Fahrenheit, and additional compatible Ebola Virus Disease symptoms Patient denies exposure to infectious person Patient denies travel to an Ebola-affected area in the 21 days before illness onset No symptoms or risks identified at this time. ROS: 13:28 Constitutional: Negative for fever, chills, and weight loss, Eyes: Negative for injury, nh pain, redness, and discharge, ENT: Negative for injury, pain, and discharge, Neck: Negative for injury, pain, and swelling, Cardiovascular: Negative for chest pain, palpitations, and edema, Abdomen/GI: Negative for abdominal pain, nausea, vomiting, diarrhea, and constipation, Back: Negative for injury and pain, : Negative for injury, bleeding, discharge, and swelling, MS/Extremity: Negative for injury and deformity, Neuro: Negative for headache, weakness, numbness, tingling, and seizure, Psych: Negative for depression, anxiety, suicide ideation, homicidal ideation, and hallucinations, Allergy/Immunology: Negative for hives, rash, and allergies, Endocrine: Negative for neck swelling, polydipsia, polyuria, polyphagia, and marked weight changes, Hematologic/Lymphatic: Negative for swollen nodes, abnormal bleeding, and unusual bruising. 13:28 Respiratory: Positive for shortness of breath, Negative for cough, dyspnea on exertion, hemoptysis, orthopnea, pleurisy, sputum production, wheezing, acute changes. 13:28 Skin: Positive for rash. Exam: 13:28 Constitutional: This is a well developed, well nourished patient who is awake, alert, nh and in no acute distress. Head/Face: Normocephalic, atraumatic. Eyes: Pupils equal round and reactive to light, extra-ocular motions intact. Lids and lashes normal. Conjunctiva and sclera are non-icteric and not injected. Cornea within normal limits. Periorbital areas with no swelling, redness, or edema. ENT: Nares patent. No nasal discharge, no septal abnormalities noted. Tympanic membranes are normal and external auditory canals are clear. Oropharynx with no redness, swelling, or masses, exudates, or evidence of obstruction, uvula midline. Mucous membranes moist. Neck: Trachea midline, no thyromegaly or masses palpated, and no cervical lymphadenopathy. Supple, full range of motion without nuchal rigidity, or vertebral point tenderness. No Meningismus. Chest/axilla: Normal chest wall appearance and motion. Nontender with no deformity. No lesions are appreciated. Cardiovascular: Regular rate and rhythm with a normal S1 and S2. No gallops, murmurs, or rubs. Normal PMI, no JVD. No pulse deficits. Respiratory: Lungs have equal breath sounds bilaterally, clear to auscultation and percussion. No rales, rhonchi or wheezes noted. No increased work of breathing, no retractions or nasal flaring. Abdomen/GI: Soft, non-tender, with normal bowel sounds. No distension or tympany. No guarding or rebound. No evidence of tenderness throughout. Back: No spinal tenderness. No costovertebral tenderness. Full range of motion. MS/ Extremity: Pulses equal, no cyanosis. Neurovascular intact. Full, normal range of motion. Neuro: Awake and alert, GCS 15, oriented to person, place, time, and situation. Cranial nerves II-XII grossly intact. Motor strength 5/5 in all extremities. Sensory grossly intact. Cerebellar exam normal. Normal gait. Psych: Awake, alert, with orientation to person, place and time. Behavior, mood, and affect are within normal limits. 13:28 Skin: rash a moderate rash is noted, rash can be described as erythematous, raised, urticarial. Vital Signs: 09:25 BP 143 / 78; Pulse 72; Resp 16 S; Pulse Ox 98% on R/A; Weight 92.99 kg; Height 5 ft. 9 iw in. (175.26 cm); 10:30 BP 122 / 72; Pulse 66; Resp 16; Pulse Ox 96% ; bp 11:30 BP 117 / 70; Pulse 64; Resp 14; Pulse Ox 93% ; bp 13:00 BP 117 / 72; Pulse 72; Resp 14; Pulse Ox 96% ; bp 13:51 BP 129 / 66; Pulse 75; Resp 14; Temp 98.5; Pulse Ox 95% ; bp 09:25 Body Mass Index 30.27 (92.99 kg, 175.26 cm) iw MDM: 09:14 Patient medically screened. [facility] 13:28 Data reviewed: vital signs, nurses notes, lab test result(s), radiologic studies, I nv have discussed the patient's presentation/case with the attending Emergency Department Physician; and as a result, I will discharge patient. Counseling: I had a detailed discussion with the patient and/or guardian regarding: the historical points, exam findings, and any diagnostic results supporting the discharge/admit diagnosis, lab results, radiology results, the need for outpatient follow up, to return to the emergency department if symptoms worsen or persist or if there are any questions or concerns that arise at home. 12/17 10:32 Order name: CBC with Diff; Complete Time: 11:47 nv 12/17 10:32 Order name: CMP; Complete Time: 13:18 nv 12/17 12:35 Order name: Magnesium; Complete Time: 13:18 nv 12/17 12:35 Order name: NT PRO-BNP; Complete Time: 13:18 nv 12/17 12:35 Order name: PT-INR; Complete Time: 13:18 nv 12/17 12:35 Order name: Troponin (emerg Dept Use Only); Complete Time: 13:18 nv 12/17 10:32 Order name: IV Start; Complete Time: 11:23 nv 12/17 12:35 Order name: CT Chest For PE Angio; Complete Time: 13:26 nv 12/17 12:35 Order name: EKG; Complete Time: 12:35 nv 12/17 12:35 Order name: Cardiac monitoring; Complete Time: 12:57 nv 12/17 12:35 Order name: EKG - Nurse/Tech; Complete Time: 12:57 nv 12/17 12:35 Order name: IV Saline Lock; Complete Time: 13:14 nv 12/17 12:35 Order name: Labs collected and sent; Complete Time: 13:14 nv 12/17 12:35 Order name: O2 Per Protocol; Complete Time: 12:57 nv 12/17 12:35 Order name: O2 Sat Monitoring; Complete Time: 12:57 nv Administered Medications: 09:30 Drug: Dexamethasone 10 mg Route: IM; Site: right gluteus; bp 11:57 Follow up: Response: Marked relief of symptoms bp 09:30 Drug: Pepcid 20 mg Route: PO; bp 11:57 Follow up: Response: Marked relief of symptoms bp Disposition: 12/18 09:13 Co-signature as Attending Physician, Suman Tuttle MD I agree with the assessment and jeremy plan of care. Disposition: 12/17/18 13:30 Discharged to Home. Impression: Erythema multiforme. - Condition is Stable. - Discharge Instructions: Rash. - Medication Reconciliation Form, Thank You Letter, Antibiotic Education, Prescription Opioid Use form. - Follow up: Private Physician; When: 5 - 6 days; Reason: Recheck today's complaints. - Problem is new. - Symptoms are unchanged. Signatures: Dispatcher [employer] Suman Coleman MD MD cha Cronk, Niki, SENIOR INTERIOR DESIGNER SENIOR INTERIOR DESIGNER nv Mounika Lao, RN RN iw Noel Wu RN RN bp Corrections: (The following items were deleted from the chart) 12/17 13:58 13:30 12/17/2018 13:30 Discharged to Home. Impression: Erythema multiforme. Condition bp is Stable. Forms are Medication Reconciliation Form, Thank You Letter, Antibiotic Education, Prescription Opioid Use. Follow up: Private Physician; When: 5 - 6 days; Reason: Recheck today's complaints. Problem is new. Symptoms are unchanged. nh
--- NOTE | 2018-12-17 13:31 | ER ---
Nurse's Notes [facility] Name: Noah Medina Age: 73 yrs Sex: Male : 1945 Arrival Date: 12/17/2018 Time: 09:02 Bed 6 Private MD: Diagnosis: Erythema multiforme Presentation: 12/17 09:15 Presenting complaint: Patient states: was seen here on with hives/rash, stopped iw dial soap because rash was localized to face, started steroids and Pepcid, thinks he may be allergic to tramadol, last dose was Tuesday, rash started back yesterday, worse this morning, hives noted to thea, shoulders, rash is itchy, also feels general weakness. Transition of care: patient was not received from another setting of care. 09:15 Method Of Arrival: Ambulatory iw 09:25 Onset: The symptoms/episode began/occurred 3 day(s) ago. Anaphylaxis evaluation, no iw signs or symptoms of anaphylaxis were noted. Onset of symptoms was December 14, 2018. Risk Assessment: Do you want to hurt yourself or someone else? Patient reports no desire to harm self or others. Initial Sepsis Screen: Does the patient meet any 2 criteria? No. Patient's initial sepsis screen is negative. Does the patient have a suspected source of infection? No. Patient's initial sepsis screen is negative. 09:25 Acuity: CLAIRE 3 iw 09:30 Care prior to arrival: None. bp Triage Assessment: 09:25 General: Appears in no apparent distress. uncomfortable, Behavior is cooperative, bp appropriate for age, anxious. Pain: Denies pain. EENT: No deficits noted. Neuro: Level of Consciousness is awake, alert, obeys commands, Oriented to person, place, time, situation, Appropriate for age. Cardiovascular: No deficits noted. Respiratory: Airway is patent Respiratory effort is even, unlabored, Respiratory pattern is regular, symmetrical. GI: No signs and/or symptoms were reported involving the gastrointestinal system. : No signs and/or symptoms were reported regarding the genitourinary system. Derm: Rash noted that is red, urticaria. Musculoskeletal: Circulation, motion, and sensation intact. Range of motion: intact in all extremities. Historical: - Home Meds: 09:30 aspirin 81 mg Oral chew 1 tab once daily [Active]; meloxicam 7.5 mg Oral tab [Active]; iw Hydrocodone-Acetaminophen Oral [Active]; tizanidine 2 mg Oral cap [Active]; tramadol 50 mg Oral tab [Active]; Stool Softener Oral [Active]; cefadroxil 500 mg Oral cap [Active]; - PMHx: 09:30 Hypertension; iw - PSHx: 09:30 right knee; Hernia repair; iw - Immunization history:: Adult Immunizations not up to date. - Social history:: Smoking status: Patient/guardian denies using tobacco. - Ebola Screening: : Patient negative for fever greater than or equal to 101.5 degrees Fahrenheit, and additional compatible Ebola Virus Disease symptoms Patient denies exposure to infectious person Patient denies travel to an Ebola-affected area in the 21 days before illness onset No symptoms or risks identified at this time. Screenin:35 Abuse screen: Denies threats or abuse. Denies injuries from another. Nutritional bp screening: No deficits noted. Tuberculosis screening: No symptoms or risk factors identified. Fall Risk None identified. Assessment: 09:30 General: SEE TRIAGE NOTE. bp 09:30 Respiratory: Airway is patent Breath sounds are clear bilaterally. bp 11:30 Reassessment: ALL CURRENT ORDERS COMPLETED, RESULTS PENDING FOR DISPO. bp 13:00 Reassessment: PT TO CT WITH [facility]. bp 13:26 Reassessment: PT RETURNED FROM CT. bp 13:52 Reassessment: PT D/C HOME AMBULATORY WITH FAMILY, DX WITH ERYTHEMA MULTIFORME. bp Vital Signs: 09:25 BP 143 / 78; Pulse 72; Resp 16 S; Pulse Ox 98% on R/A; Weight 92.99 kg; Height 5 ft. 9 iw in. (175.26 cm); 10:30 BP 122 / 72; Pulse 66; Resp 16; Pulse Ox 96% ; bp 11:30 BP 117 / 70; Pulse 64; Resp 14; Pulse Ox 93% ; bp 13:00 BP 117 / 72; Pulse 72; Resp 14; Pulse Ox 96% ; bp 13:51 BP 129 / 66; Pulse 75; Resp 14; Temp 98.5; Pulse Ox 95% ; bp 09:25 Body Mass Index 30.27 (92.99 kg, 175.26 cm) ED Course: 09:02 Patient arrived in ED. as 09:06 Noel Wu, RN is Primary Nurse. bp 09:14 Suman Tuttle MD is Attending Physician. jeremy 09:25 [facility] ms 09:25 Arm band placed on. iw 09:26 Triage completed. iw 09:35 Patient has correct armband on for positive identification. Placed in gown. Bed in low bp position. Call light in reach. Side rails up X2. Adult w/ patient. 11:15 Inserted saline lock: 22 gauge in right forearm, using aseptic technique. Blood bp collected. 12:56 EKG done, by ED staff, reviewed by Elizabeth MORENO. harriett 13:23 CT Chest For PE Angio In Process Unspecified. EDMS 13:55 No provider procedures requiring assistance completed. IV discontinued, intact, bp bleeding controlled, No redness/swelling at site. Pressure dressing applied. Administered Medications: 09:30 Drug: Dexamethasone 10 mg Route: IM; Site: right gluteus; bp 11:57 Follow up: Response: Marked relief of symptoms bp 09:30 Drug: Pepcid 20 mg Route: PO; bp 11:57 Follow up: Response: Marked relief of symptoms bp Outcome: 13:30 Discharge ordered by . nh 13:55 Discharged to home ambulatory, with family. bp 13:55 Condition: stable 13:55 Discharge instructions given to patient, Instructed on discharge instructions, follow up and referral plans. Demonstrated understanding of instructions, follow-up care. 13:58 Patient left the ED. bp Signatures: Dispatcher [employer] EDMS Rogers [email or web address] Suman Tuttle MD MD cha Cronk, Niki, FNP [facility] Carmen Mejias as Mounika Lao, JENNY RN Noel Wu, RN RN bp
[2018-12-17 14:28] VITALS: BP 129/66; TEMP 98.5; O2SAT 95
--- NOTE | 2018-12-18 09:20 | EKG ---
Test Date: 2018-12-17 Test Time: 12:49:18 Power Truck Driver: CHERIE MEASUREMENT RESULTS: Intervals: Rate: 68 NC: 168 QRSD: 94 QT: 404 QTc: 429 Bitely: P: 20 NC: 168 QRS: 10 T: 35 INTERPRETIVE STATEMENTS: Normal sinus rhythm Normal ECG Compared to ECG 01/27/2014 09:42:44 No significant changes Electronically Signed On 12-18-18 09:19:28 CDT by Ashish Suárez
== END 2018-12-17 13:58 | disposition home or self-care (01) ==
LOC: ER 09:00
DX: L51.9 Erythema multiforme, unspecified (principal); I10 Essential (primary) hypertension; Z79.82 Long term (current) use of aspirin
CPT/HCPCS: 93005; 85025; 36415; 83735; 85610; 84484; 80053; 83880; 71275; 96372; 99284; Q9967; J1100

== ENCOUNTER 2022-04-23 15:53 | Emergency (ER) | payer OTHER ==
--- OUTSIDE RECORDS SUMMARY | 2022-04-23 15:58 | XMS REPORT | Continuity of Care Document ---
:[address] [facility] t Address [address] [place] [address] Care Team Providers Name Role Phone Shalom Mackay Caitlyn Primary Care Physician Maureen Romero Attending Clinician Unavailable Ahsan Thompson Attending Clinician Leander ALVARADO, Alina Tao Attending Clinician Unavailable Only, Ang Db Test Attending Clinician Unavailable Dali Stubbs Attending Clinician DALI BURTON Attending Clinician Unavailable Meet Levy Attending Clinician MEET ACKERMAN Attending Clinician Unavailable Doctor Unassigned, [place] Attending Clinician Unavailable Ahsan Thompson Admitting Clinician Payers Payer Name Policy Type Policy Number Effective Date Expiration Date S ource Problems Condition Condition Condition Status Onset Resolution Last Treating Co mments Source Name Details Category Date Date Treatment Clinician Date Kidney Kidney Problem Active 2022-04-08 Louis jeanne stone stone 08-08 07:01:16 l (disorder) (disorder) 00:00: He rmann Active 08/08/2011 Problem 04/08/2022 NO SURGERY. [facility] Shoulder Shoulder Problem Active 2022-04-08 Memoria pain pain 07:01:16 l (finding) (finding) Herm don Active Problem 04/08/2022 [facility] Benign Benign Problem Active 2022-04-08 Louis jeanne prostatic prostatic 07:01:16 l hyperplasi hyperplasi He rmann a a (disorder) (disorder) Active Problem 04/08/2022 [facility] Administra Administr Problem Active 2022-04-08 Memoria tion of ation of 07:01:16 l SARS-CoV-2 SARS-CoV-2 He rmann vaccine vaccine Active Problem 04/08/2022 PFIZERS X2 [facility] Infection Infection Problem Active 2022-04-08 Memoria of ear of ear 07:01:16 l (disorder) (disorder) He rmann Active Problem 04/08/2022 [facility] Hypertensi Problem Active 2022-04-08 M emoria ve Hypertensi 07:01:16 l disorder, ve Carlos systemic disorder, arterial systemic (disorder) arterial (disorder) Active Problem 04/08/2022 [facility] Unspecifie Unspecifi Problem 2022-04-08 2022-04-08 Memoria d rotator ed rotator 831 07:01:16 07:01:16 l cuff tear cuff tear 17:00: Herm don or rupture or rupture 00 of right of right shoulder, shoulder, not not specified specified as as traumatic traumatic 04/07/2022 [facility] Allergies, Adverse Reactions, Alerts Allergy Allergy Status Severity Reaction(s) Onset Inactive Treating Comm ents Source Name Type Date Date Clinician No Known DA Active U 2018- [facility] 00 [facility] No Known DA Active U 2016-0 [facility] Allergie 6-13 Clear s 00:00: [facility] 00 [facility] NO KNOWN Drug Active Univers ALLERGIE Class ity [facility] Medical Branch Social History Social Habit Start Date Stop Date Quantity Comments Source Exposure to Not sure [facility] SARS-CoV-2 (event) Medica l Branch Sex Assigned At [birth year] [facility] 00:00:00 00:00:00 Medical Branch Smoking Status Start Date Stop Date Source Unknown if ever smoked [facility] Medical Branch Medications Ordered Filled Start Stop Current Ordering Indication Dosage Frequency Signature Comments Components Source Medication Medication Date Date Medication? Clinician (SIG) Name Name Artemio 0 No 4 mg = 2 Memoria 8-31 mL, l 23:34: Injection, [place] 00 IV Push, q30min PRN for nausea/vom iting, order duration: 2 dose(s)/ti me(s), first dose 04/07/22 18:34:00 CDT, stop date Limited # of times LR 1,000 mL No 1,000 mL, M emoria 8-31 IV, 75 l 23:17: mL/hr, Carlos 00 start date 04/07/22 18:17:00 CDT, 2.09, m2 Robinul No 0.2 mg = 1 Louis jeanne 8-31 mL, l 23:17: Injection, [place] 00 IV Push, Once PRN for bradycardi a, first dose 04/07/22 18:17:00 CDT Bupivacaine 2021-0 No 300 mL, Mem oria 0.25% 300 8-31 Nerve l mL pump 300 23:17: Block, 5 He rmann mL 00 mL/hr, start date 04/07/22 18:17:00 CDT, 2.09, m2 morphine 2021-0 No 2 mg = 1 Memor ia 8-31 mL, l 23:17: Injection, [place] 00 IV Push, q5min PRN for pain, first dose 04/07/22 18:17:00 CDT Dilaudid 2021-0 No 0.5 mg = Memor ia 8-31 0.5 mL, l 23:17: Injection, Carlos 00 IV Push, q10min PRN for pain severe (7-10), first dose 04/07/22 18:17:00 CDT Demerol HCl 2021-0 No 12.5 mg = M emoria 8-31 0.5 mL, l 23:17: Injection, Carlos 00 IV Push, Once PRN for shivers, first dose 04/07/22 18:17:00 CDT Xopenex 2021-0 No 0.63 mg = Memor ia 0.63 mg/3 8-31 3 mL, l mL 23:17: Soln, NEB, Carlos inhalation 00 Once PRN solution for wheezing, first dose 04/07/22 18:17:00 CDT ondansetron No 4 mg = 2 Me moria 8-31 mL, l 23:17: Injection, [place] 00 IV Push, q15min PRN for nausea, order duration: 2 dose(s)/ti me(s), first dose 04/07/22 18:17:00 CDT, stop date Limited # of times promethazin No 12.5 mg = M emoria e - 0.5 mL, l 23:17: Injection, Carlos 00 IM, Once PRN for vomiting, first dose 04/07/22 18:17:00 CDT labetalol No 5 mg = 1 Louis jeanne 8-31 mL, l 23:17: Injection, Carlos 00 IV Push, As Indicated PRN for hypertensi on, first dose 04/07/22 18:17:00 CDT, SBP Hold Parameter: less than 110 mmHg, HR Hold Parameter: less than 60 bpm hydrALAZINE No 10 mg = Mem oria 8-31 0.5 mL, l 23:17: Injection, [place] 00 IV Push, As Indicated PRN for hypertensi on, first dose 04/07/22 18:17:00 CDT, SBP Hold Parameter: less than 110 mmHg diphenhydrA No 25 mg = Mem oria MINE -31 0.5 mL, l 23:17: Injection, Carlos 00 IV Push, Once PRN for itching, first dose 04/07/22 18:17:00 CDT [place] 10 No Notes: Max Mem oria mg-325 mg 04-07 4gm l oral tablet 23:04: acetaminop hen in 24 hours Misc No 900 mL, Memoria Medication 04-07 Soln-IV, l 22:48: IV, Once, first dose 04/07/22 17:48:00 CDT, stop date 04/07/22 17:48:00 CDT Saline Lock No 10 mL, Louis jeanne Flush 04-07 Soln, IV l 22:47: Push, As [place] 00 Indicated PRN for flush, first dose 04/07/22 17:47:00 CDT HYDROmorpho 2021-0 No 0.5 mg = Me moria ne 8-31 0.25 mL, l 22:13: Injection, IV, Once, first dose 04/07/22 17:13:00 CDT, stop date 04/07/22 17:13:00 CDT ondansetron 2021-0 No 4 mg = 2 Me moria 8-31 mL, l 22:13: Injection, IV, Once, first dose 04/07/22 17:13:00 CDT, stop date 04/07/22 17:13:00 CDT HYDROmorpho 2021-0 No 0.5 mg = Me moria ne -31 0.25 mL, l 20:59: Injection, IV, Once, first dose 04/07/22 15:59:00 CDT, stop date 04/07/22 15:59:00 CDT Misc 2021-0 No 1,000 mL, Memoria Medication 04-07 Soln-IV, l 20:22: IV, Once, first dose 04/07/22 15:22:00 CDT, stop date 04/07/22 15:22:00 CDT HYDROmorpho 2021-0 No 0.5 mg = Me moria ne 8-31 0.25 mL, l 20:20: Injection, IV, Once, first dose 04/07/22 15:20:00 CDT, stop date 04/07/22 15:20:00 CDT dexamethaso 2021-0 No 8 mg = 2 Me moria ne 8-31 mL, l 19:45: Injection, IV, Once, first dose 04/07/22 14:45:00 CDT, stop date 04/07/22 14:45:00 CDT ePHEDrine 2021-0 No 10 mg = Memor ia 04-07 0.2 mL, l 19:42: Injection, IV, Once, first dose 04/07/22 14:42:00 CDT, stop date 04/07/22 14:42:00 CDT ePHEDrine 2-0 No 10 mg = Memor ia 8-31 0.2 mL, l 19:32: Injection, [place] 00 IV, Once, first dose 04/07/22 14:32:00 CDT, stop date 04/07/22 14:32:00 CDT ceFAZolin 2-0 No 2 gm, Memoria 04-07 Soln-IV, l 19:17: IV [place] 00 Piggyback, Once, first dose 04/07/22 14:17:00 CDT, stop date 04/07/22 14:17:00 CDT propofol 2-0 No 120 mg = Memor ia 8-31 12 mL, l 19:11: Emulsion, Carlos 00 IV, Once, first dose 04/07/22 14:11:00 CDT, stop date 04/07/22 14:11:00 CDT lidocaine 2-0 No 60 mg = 3 Mem oria 8-31 mL, l 19:11: Injection, Carlos 00 IV, Once, first dose 04/07/22 14:11:00 CDT, stop date 04/07/22 14:11:00 CDT midazolam 2-0 No 1 mg = 1 Louis jeanne 8-31 mL, l 19:08: Injection, [place] 00 IV, Once, first dose 04/07/22 14:08:00 CDT, stop date 04/07/22 14:08:00 CDT fentaNYL 2-0 No 50 mcg = 1 Mem oria 8-31 mL, l 19:08: Injection, Carlos 00 IV, Once, first dose 04/07/22 14:08:00 CDT, stop date 04/07/22 14:08:00 CDT midazolam 2-0 No 1 mg = 1 Louis jeanne 8-31 mL, l 19:02: Injection, [place] 00 IV, Once, first dose 04/07/22 14:02:00 CDT, stop date 04/07/22 14:02:00 CDT fentaNYL 2-0 No 50 mcg = 1 Mem oria 8-31 mL, l 19:02: Injection, [place] 00 IV, Once, first dose 04/07/22 14:02:00 CDT, stop date 04/07/22 14:02:00 CDT ceFAZolin No 2 gm, Memoria 04-07 Soln-IV, l 18:00: IV Piggyback, Once, infuse over 30 minutes, first dose 04/07/22 13:00:00 CDT, stop date 04/07/22 13:00:00 CDT, patient weight 50-120 kg, Prophylaxi s LR 1,000 mL No 1,000 mL, M emoria 04-07 IV, 30 l 17:25: mL/hr, start date 04/07/22 12:25:00 CDT, 2.09, m2 Lidocaine No 0.2 mL, Memor ia 2% 0.2 mL 04-07 Injection, l IV Start 16:55: Subcutaneo [facility]] 00 , Once PRN for other (see comment), first dose 04/07/22 11:55:00 CDT tamsulosin Yes 0.4 mg = 1 M emoria 0.4 mg oral 03-29 caps, l capsule 20:47: Oral, Daily, BPH losartan Yes 100 mg = 1 Mem oria 100 mg oral 03-29 tabs, l tablet 20:46: Oral, Daily, HTN amLODIPine Yes 2.5 mg = 1 M emoria 2.5 mg oral 03-29 tabs, l tablet 20:46: Oral, Daily, HTN Cozaar Cozaar Yes Summer take 1 Common [place] tablet by [facility] mouth - [facility] every day [facility] Cozaar Cozaar Yes Summer TAKE 1 Common [place] TABLET BY Spirit MOUTH - [facility] EVERY DAY [facility] Tamsulosin Tamsulosin Yes Summer 1 capsule Common HCl HCl Rufino [facility] Immunizations Ordered Immunization Filled Immunization Date Status Commen ts Source Name Name Prevnar 13 Prevnar 13 2019-08-07 Completed Common [facility] -Pneumonia Vaccine -Pneumonia Vaccine 00:00:00 - [facility] Vital Signs Vital Name Observation Time Observation Value Comments Source Respitory Rate 2022-04-08 00:07:00 Carlos [place]ino Systolic (mm Hg) 2022-04-08 00:07:00 Louis rial Carlos Diastolic (mm Hg) 2022-04-08 00:07:00 Mem orial [place] Systolic (mm Hg) 2022-04-07 23:50:00 Louis rial [place] Diastolic (mm Hg) 2022-04-07 23:50:00 Mem orial [place] Respitory Rate 2022-04-07 23:50:00 Memori al [place] Heart Rate 2022-04-07 23:50:00 [facility] [place] Systolic (mm Hg) 2022-04-07 23:40:00 Louis rial [place] Diastolic (mm Hg) 2022-04-07 23:40:00 Mem orial [place] Respitory Rate 2022-04-07 23:40:00 Memori al [place] Heart Rate 2022-04-07 23:40:00 [facility] [place] Heart Rate 2022-04-07 23:30:00 [facility] [place] Temperature Oral (F) 2022-04-07 22:30:00 36.5 Cande [facility] [place] Temperature Oral (F) 2022-04-07 17:03:00 36.3 Cande [facility] [place] Height 2022-04-07 17:03:00 175.26 cm [facility] [place] Weight 2022-04-07 17:03:00 [facility] [place] Height 2022-03-29 20:41:00 175.26 cm [facility] [place] Weight 2022-03-29 20:41:00 [facility] [place] Procedures Procedure Date / Time Performed Performing Clinician [facility] e ARTHROSCOPY SHOULDER 2022-04-07 19:46:00 Glynn kumar [place] ROTATOR CUFF REPAIR [id number] (Right)<sup>1</sup> ARTHROSCOPY SHOULDER 2022-04-07 19:46:00 Glynn Gonzalez W/SUBACROMIAL DECOMPRESSION/ACROMIOPLAS TY 20749 (Right)<sup>2</sup> RIGHT TOTAL KNEE 2014-08-08 00:00:00 Aida He rmann REPLACEMENT<sup>3</sup> LEFT KNEE TOTAL KNEE 2008-08-08 00:00:00 Glynn kumar [place] REPLACEMENT basal cell removal-nose [facility] [place] RIGHT WRIST CYST [facility] Dominic n REMOVAL<sup>4</sup> Encounters Start End Encounter Admission Attending Care Care Encounter Source Date/Time Date/Time Type Type Clinicians Facility Department ID 2022-03-18 Outpatient Romero, Na STLMLC STLMLC [id number] Common 10:28:01 [id number] [facility] 2021-09-02 Outpatient Romero, Na STLMLC STLMLC [id number] Common 14:37:55 [facility] 2021-09-02 Outpatient Romero, Na STLMLC STLMLC [id number] Common 14:00:06 [id number] [facility] 2021-09-02 Outpatient Romero, Na STLMLC STLMLC [id number] Common 13:45:17 [id number] [facility] 2021-09-02 Outpatient Romero, Na STLMLC STLMLC [id number] Common 13:13:08 [id number] [facility] 2021-09-02 Outpatient Romero, Na STLMLC STLMLC [id number] Common 12:31:25 [id number] [facility] 2021-09-02 Outpatient Romero, Na STLMLC STLMLC [id number] Common 12:12:29 [id number] [facility] 2021-09-02 Outpatient Romero, Na STLMLC STLMLC [id number] Common 12:11:40 [id number] [facility] 2021-09-02 Outpatient Romero, Na STLMLC STLMLC [id number] Common 11:30:36 [id number] [facility] 2021-09-02 Outpatient Romero, Na STLMLC STLMLC [id number] Common 11:30:21 [id number] [facility] 2021-09-02 Outpatient Romero, Na STLMLC STLMLC [id number] Common 11:19:40 [id number] [facility] 2022-04-07 2022-04-08 [facility] [id number] Memoria 16:12:28 00:34:00 taiwo Gonzalez [facility] 2022-04-07 2022-04-07 Outpatient [facility] [id number] Memoria 11:12:28 19:34:00 taiwo Gonzalez 2022-04-07 2022-04-07 Outpatient Jay, [id number] 11:12:28 19:34:00 Ahsan Pereyra 2022-03-22 2022-03-22 ambulatory STLMLC STLMLC [id number] Common 00:00:00 00:00:00 [facility] 2022-03-03 2022-03-03 ambulatory STLMLC STLMLC [id number] Common 00:00:00 00:00:00 [facility] 2022-03-03 2022-03-03 ambulatory STLMLC STLMLC [id number] Common 00:00:00 00:00:00 [facility] 2021-10-11 2021-10-11 ambulatory STLMLC STLMLC [id number] Common 00:00:00 00:00:00 [facility] 2021-08-28 2021-08-28 ambulatory STLMLC STLMLC [id number] Common 00:00:00 00:00:00 [facility] 2021-08-23 2021-08-23 Telephone FLOYD Tabor [id number] Univers 00:00:00 00:00:00 Alina LLANOS [id number] i [facility] [id number] Vickey as [phone] [address] 2021-08-22 2021-08-22 Laboratory Only, Ang Db Test [facility] 1.2.8 40.114 [id number] Univers 20:00:00 20:15:[address] [facility] [id number] [facility] [id number] Vickey as DAVID?BLEA [phone] [address] MEDICAL OFFICE BUILDING 2021-08-22 2021-08-22 Outpatient R [facility] [id number] Univers 20:00:00 20:00:00 [id number] ity [facility] 2021-08-22 2021-08-22 Outpatient R MICHEAL [facility] [id number] Univers 20:00:00 20:00:00 DALI rincon o f [facility] 2021-07-29 2021-07-29 Laboratory Only, Ang Db Test [facility] 1.2.8 40.114 [id number] Univers 17:45:00 18:00:00 Only Meet Ackerman [facility] [id number] ity of [place] [id number] Vickey as DAVID?BLEA [phone] [address] MEDICAL OFFICE BUILDING 2021-07-29 2021-07-29 Outpatient R NICK [facility] [id number] Univers 17:45:00 17:45:00 MEET ity [facility] 2021-07-29 2021-07-29 Letter Doctor FLOYD [id number] Univers 00:00:00 00:00:00 (Out) Unassigned, VIET [id number] ity of [place] [facility] [id number] Vickey as [phone] [address] 2021-06-10 2021-06-10 ambulatory STLMLC STLMLC [id number] Common 00:00:00 00:00:00 [facility] 2021-05-22 2021-05-22 Outpatient STLMLC STLMLC [id number] Common 00:00:00 00:00:00 [facility] 2021-05-22 2021-05-22 Outpatient STLMLC STLMLC [id number] Common 00:00:00 00:00:00 [facility] 2021-02-14 2021-02-14 Outpatient STLMLC STLMLC [id number] Common 00:00:00 00:00:00 [facility] 2021-01-16 2021-01-16 Outpatient STLMLC STLMLC [id number] Common 00:00:00 00:00:00 [facility] 2020-09-26 2020-09-26 Outpatient STLMLC STLMLC [id number] Common 00:00:00 00:00:00 [facility] 2020-07-21 2020-07-21 Outpatient STLMLC STLMLC [id number] Common 00:00:00 00:00:00 [facility] 2020-07-18 2020-07-18 Outpatient STLMLC STLC [id number] Common 00:00:00 00:00:00 [facility] 2020-03-21 2020-03-21 [facility] [id number] Common 09:00:00 09:00:00 t Specialty/U Sp елена Specialty rology - [facility] 2020-02-19 2020-02-19 [facility] [id number] Common 14:00:00 14:00:00 t Specialty/U Sp елена Specialty rology - [facility] 2020-02-15 2020-02-15 [facility] [id number] Common 08:00:00 08:00:00 t Health: [place] Spir it GOOM [facility] 2020-02-06 2020-02-06 [facility] [id number] Common 14:34:00 14:34:00 t Specialty/U Sp елена Specialty rology - [facility] Clinic [facility] 2020-01-04 2020-01-04 [facility] [id number] Common 08:30:00 08:30:00 t Specialty/U Sp елена Specialty rology - [facility] 2019-12-27 2019-12-27 [facility] [id number] Common 09:52:00 09:52:00 t Specialty/U Sp елена Specialty rology - [facility] 2019-12-06 2019-12-06 [facility] [id number] Common 08:30:00 08:30:00 t Specialty/U Sp елена Specialty rology - [facility] 2019-08-07 2019-08-07 [facility] [id number] Common 08:00:00 08:00:00 t Health: [place] Spir it GOOM [facility] 2019-06-01 2019-06-01 Out[facility] [id number] Common 09:00:00 09:00:[address] [facility] 2019-05-02 2019-05-02 Outpatient Cheko [facility] [id number] Common 09:56:00 09:56:[address] [facility] 2018-11-08 2018-11-08 Outpatient [facility] [id number] Common 16:05:00 16:05:[address] [facility] 2018-07-28 2018-07-28 Out[facility] [id number] Common 10:30:00 10:30:[address] [facility] Results Test Description Test Time Test Comments Results Result [facility] e Comments - XR KNEE 1 OR 2 V 2018-12-04 Patient Name: RT 18:42:00 AVERY MEDINA Unit No: [id number] EXAMS: CPT CODE: [id number] XR KNEE 1 OR 2 [place] [address] IMAGES PROVIDED: 2 FINDINGS: Postoperative changes from right constrained total knee arthoplasty demonstrated without evidence of immediate complication. No acute fracture is visualized. IMPRESSION: Postoperative exam as above. at 1842 Reported and signed by: Salvatore Shin M.D. CC: Katelynn Perez MD Technologist: CHRIS BAPTISTE (RT.R) Transcribed D/ (1841) LoveJ [facility] NAME: AVERY MEDINA [address] [facility] PHYS: RAPHAEL.Nabil - Katelynn Perez : 1945 AGE: 73 SEX: M [place], [place] [address] LOC: [id number] A PHONE #: [phone] EXAM DATE: 12/01/2018 STATUS: DIS IN FAX #: [phone] RAD #: D/C DT 12/02/2018 PAGE 1 Signed Report Patient Name: AVERY MEDINA Unit No: [id number] EXAMS: CPT CODE: [id number] XR KNEE 1 OR 2 [place] [id number] (Continued) Orig Print D/T: S: 12/04/2018 (1845) [facility] NAME: AVERY MEDINA [address] [facility] PHYS: PRAMODGUME.Nabil - Katelynn Perez : 1945 AGE: 73 SEX: M [place], [place] [address] LOC: Y.502 A PHONE #: [phone] EXAM DATE: 12/01/2018 STATUS: DIS IN FAX #: [phone] RAD #: D/C DT 12/02/2018 PAGE 2 Signed Report BASIC METABOLIC PANEL 2018-12-02 07:58:00 Test Item Value Reference Range Interpretation Comme nts SODIUM (test code = NA) 139 mmol/L 136-145 N POTASSIUM (test code = K) 4.3 mmol/L 3.5-5.1 N CHLORIDE (test code = CL) 104.0 mmol/L 98-107 N CARBON DIOXIDE (test code = 26.7 mmol/L 21-32 N CO2) GLUCOSE (test code = GLU) 147 mg/dL 70-110 H BLOOD UREA NITROGEN (test code 14 mg/dL 7-18 N = BUN) GLOMERULAR FILTRATION RATE 70.2 >60 U nit of measure: mL/min/1.73 (test code = GFR) [id number] e Range:Healthy Adults >90 mL/ min/1.73 m2 For Chronic Kid radha Disease: Stage II Mild D ecrease in GFR 60-90 Stage III Moderate Decrease in GFR 30-59 Stage IV Severe Decre ase in GFR 15-29 Stage V K idney Failure <15 CREATININE (test code = CREAT) 1.04 mg/dL 0.55-1.30 N CALCIUM (test code = CA) 7.5 mg/dL 8.2-10.1 L HGB [id number] 07:29:00 Test Item Value Reference Range Interpretation Comments HEMOGLOBIN (test code = HGB) 12.3 g/dL 12-16 N HEMATOCRIT (test code = HCT) 36.6 % 37-47 L - USG NDL PLACEMENT (Bxg/Asp)2018-11-20 09:49:00 Patient Name: AVERY MEDINA Unit No: [id number] EXAMS: CPT CODE: [id number] USG NDL PLACEMENT(Bxg/Asp) 52548 INDICATION: Right knee pain. PROCEDURE: Ultrasound guided cryoneurolysis of the anterior femoral cutaneous nerve and superior and inferior branches of the infrapatellar . TENSION WORKER: Dr. Cardoso. MEDICATIONS: 1 % Lidocaine local anesthesia CONTRAST: None. COMPLICATION: None immediately evident. DESCRIPTION: After the procedure, including indication and potential complications had been discussed with the patient and questions answered, written informed consent was obtained. The patient was then taken to the ultrasound suite and placed on the table in supine position where skin of the right knee was evaluated sonographically. The skin was marked using ultrasound guidance. The skin was the n prepped and draped sterilely. A time out was performed. After achieving 1% Lidocaine local anesthesia, the Iovera device, composed of three hollow closed- tip 27 gauge 6 mm needles, was introduced percutaneously at the target site as marked sonographically. At each target site, the Iovera device wasactivated over a 60 second cycle, creating a cold zone at the target site. Following each cycle, theprobe was removed and advanced to the next target site. No immediate complication were observed. Thepatient tolerated the procedure well and was subsequently discharged in stable condition. Preprocedural pain level: 7/ 10 Postprocedural pain level: 1/ 10 IMPRESSION: Cryoneurolysis of the anterior fem oral cutaneous nerve and superior and inferior branches of the infrapatellar as above. at 0949 Reported and signed by: Katherine Cardoso MD CC: Katelynn Perez MD Technologist: SOPHIE RETANA RDMS, RVT Transcribed D/ (0949) Zafar CliffordGVG [facility] NAME: AVERY MEDINA [address] [facility] PHYS: RAPHAEL. - Katelynn Perez : 1945 AGE: 73 SEX: M [place], [place] [address] LOC: Y.RAD PHONE #: [phone] EXAM DATE: 11/17/2018 STATUS: DEP CLI FAX #: [phone] RAD #: D/C DT PAGE 1Signed Report Patient Name: AVERY MEDINA Unit No: [id number] EXAMS: CPT CODE: [id number] USGNDL PLACEMENT (Bxg/Asp) 93300 (Continued) Orig Print D/T: S: 11/20/2018 (0952) [facility] NAME: AVERY MEDINA [address] [facility] PHYS: RAPHAEL.Nabil - Katelynn Perez : 1945 AGE: 73 SEX: M [place], [place] [address] LOC: Y.RAD PHONE #: [phone] EXAM DATE: 11/17/2018 STATUS: DEP CLI FAX #: [phone] RAD #: D/C DT PAGE 2 Signed ReportGLYCOSYLATED HEMOGLOBIN (HA1C)2018-11-08 20:55:00 Test Item Value Reference Range Interpretation Comments GLYCOSYLATED 5.3 % 4.8-5.9 N Any condition t hat shortens HEMOGLOBIN (HA1C) erythocyte survival or (test code = GLYHGB) decreas esmean erythrocyte age (e.g., abi very from acute blood los s,hemolytic anemai) will fa lsely lower HGBA1c resultsr egardless of the method used . HGBA1c results frompat ients with HbSS, HbCC and HbSc must be interpreted wit hcaution given the patho logical processes, incl uding anemia,increase d red cell turnover, trans fusion requirements, t hatadversely impact HGBA1c a s a marker of long-term glycemiccontrol . Alternative for ms of testing such as fructosaminesho uld be considered for these patients.DONE A T: [facility] [address] [place], [place] [address] GLYCOSYLATED HEMOGLOBIN [id number] 19:19:00 Test Item Value Reference Range Interpretation Comments GLYCOSYLATED 5.3 % 4.8-5.9 N Any condition t hat HEMOGLOBIN (HA1C) shortens e rythocyte (test code = survival or dec reasesmean GLYHGB) erythrocyte age (e.g., recovery from a cute blood loss,hemolytic anemia) will falsely lo wer HGBA1c resultsregardle ss of the method used. HG BA1c results from pa tientswith HbSS, HbCC, and HbSc must be interpreted with cautiongiven th e pathological pr ocesses, including anemia,increase d red cell turnover, trans fusion requirements, thatadversely i mpact HGBA1c as a mar ker of long-term glycemiccontrol . Alternative for ms of testing such as fructosaminesho uld be considered for these patients. MEAN BLOOD GLUCOSE 105 MG/DL 70-110 N (test code = MBG) COMPREHENSIVE METABOLIC [id number] 12:24:00 Test Item Value Reference Range Interpretation Comments SODIUM (test code = 139 mmol/L 136-145 N NA) POTASSIUM (test code = 4.4 mmol/L 3.5-5.1 N K) CHLORIDE (test code = 103.0 mmol/L 98-107 N CL) CARBON DIOXIDE (test 29.9 mmol/L 21-32 N code = CO2) GLUCOSE (test code = 93 mg/dL 70-110 N GLU) BLOOD UREA NITROGEN 18 mg/dL 7-18 N (test code = BUN) GLOMERULAR FILTRATION 77.0 >60 Unit of measure: RATE (test code = GFR) mL/mi n/1.73 [id number] Range:Healthy Adults >90 mL/min/1.73 m2 For Chronic Kidney Disease: Stage II Mild Decrease i n GFR 60-90 Stage III Moderate Decrea se in GFR 30-59 St age IV Severe Decre ase in GFR 15-29 St age V Kidney Failur e <15 CREATININE (test code 0.96 mg/dL 0.55-1.30 N = CREAT) TOTAL PROTEIN (test 7.3 g/dL 6.4-8.2 N code = PROT) ALBUMIN (test code = 4.0 g/dL 3.4-5.0 N ALB) GLOBULIN (test code = 3.3 g/dL 2.2-4.2 N GLOB) ALBUMIN/GLOBULIN RATIO 1.2 0.7-2.0 N (test code = A/G) CALCIUM (test code = 8.7 mg/dL 8.2-10.1 N CA) BILIRUBIN TOTAL (test 0.78 mg/dL 0.2-1.00 N code = BILT) SGOT/AST (test code = 26.0 U/L 15-37 N AST) SGPT/ALT (test code = 25.0 U/L 12-78 N Please note new ALT) normal range. ALKALINE PHOSPHATASE 97 U/L 46-116 N TOTAL (test code = ALKP) PROTHROMBIN [id number] 12:22:00 Test Item Value Reference Range Interpretation Comments PROTHROMBIN TIME 11.9 secs 10.1-12.5 N PATIENT (test code = PTP) INTERNATIONAL NORMAL 1.05 <2.0 RECOMME NDED THERAPEUTIC RATIO (test code = RANGE FOR ORAL INR) ANTICOAGULANTTR EATMENT: CONDITION INRPr ophylaxis of venous throm bosis in 2.0 - 3.0 high- risk medical or surg ical patientsTreatme nt of venous thrombos is 2.0 - 3.0Prevention o f embolism 2.0 - 3.0Prevention o f recurrent embol ism, or 3.0 - 4.5 patie nts with mechanical pros thetic intravascular v hall IS PATIENT ON ANTICOAGULANTS ? NHas Lab been notified if Patient is on Heparin Drip? NOTHROMBOPLASTIN TIME [id number] 12:22:00 Test Item Value Reference Range Interpretation Comments PTT ACTIVATED (test code = APTT) 32.2 secs 24.9-37.0 N IS PATIENT ON ANTICOAGULANTS ? NHas Lab been notified if Patient is on Heparin Drip? NOURINALYSIS [id number] 12:15:00 Test Item Value Reference Range Interpretation Comments UA COLOR (test code = COLU) YELLOW YELLOW UA APPEARANCE (test code = CLEAR CLEAR APPU) UA GLUCOSE DIPSTICK (test code NEGATIVE NEGATIVE = DGLUU) UA BILIRUBIN DIPSTICK (test NEGATIVE NEGATIVE code = BILU) UA KETONE DIPSTICK (test code NEGATIVE mg/dL NEGATIVE = KETU) UA SPECIFIC GRAVITY (test code 1.015 1.003-1.035 = SGU) UA BLOOD DIPSTICK (test code = NEGATIVE NEGATIVE JAI) UA PH DIPSTICK (test code = 5.5 >6.5 FELIX) UA PROTEIN DIPSTICK (test code NEGATIVE mg/dL NEG = PROU) UA UROBILINIOGEN DIPSTICK 0.2 mg/dL NORM (test code = URO) UA NITRITE DIPSTICK (test code NEGATIVE NEG = ARANZA) UA LEUKOCYTE ESTERASE DIPSTICK NEGATIVE NEGATIVE (test code = LEUU) UA WBC (test code = WBCU) <5.0 /HPF 0-2 UA RBC (test code = RBCU) 0-2 /HPF 0-2 UA EPITHELIAL CELLS (test code RARE /HPF 0-2 = EPIU) UA BACTERIA (test code = BACU) FEW /HPF NONE CBC W/AUTO [id number] 12:09:00 Test Item Value Reference Range Interpretation Comments WHITE BLOOD CELL (test code = WBC) 4.1 K/mm3 5.7-10.5 L RED BLOOD CELL (test code = RBC) 4.89 M/mm3 4.2-5.4 N HEMOGLOBIN (test code = HGB) 15.7 g/dL 12-16 N HEMATOCRIT (test code = HCT) 47.3 % 37-47 H MEAN CELL VOLUME (test code = MCV) 97 fL 80-98 N MEAN CELL HGB (test code = MCH) 32.1 pg 27-34 N MEAN CELL HGB CONCENTRATION (test 33.2 g/dL 30.8-34.1 N code = MCHC) RED CELL DISTRIBUTION WIDTH (test 13.2 % 11-16 N code = RDW) PLT (test code = PLT) 191 K/mm3 130-400 N MEAN PLATELET VOLUME (test code = 11.1 fL 8.9-12.1 N MPV) NEUTROPHIL % (test code = NT%) 45.7 % 45-70 N LYMPHOCYTE % (test code = LY%) 43.9 % 20-40 H MONOCYTE % (test code = MO%) 8.5 % 3-10 N EOSINOPHIL % (test code = EO%) 0.7 % 1-5 L BASOPHIL % (test code = BA%) 1.0 % 0.0-1.1 N NEUTROPHIL # (test code = NT#) 1.87 K/mm3 2.00-7.50 L LYMPHOCYTE # (test code = LY#) 1.80 K/mm3 1.50-4.00 N MONOCYTE # (test code = MO#) 0.35 K/mm3 0.2-0.8 N EOSINOPHIL # (test code = EO#) 0.03 K/mm3 0.04-0.4 L BASOPHIL # (test code = BA#) 0.04 K/mm3 0.02-0.10 N MANUAL DIFF REQUIRED (test code = NO MANUAL DIFF MDIFF) NUCLEATED RED BLOOD CELL (test 0 % 0-0 N code = NRBC) - XR FLUORO [id number] 10:10:00 Patient Name: AVERY MEDINA Unit No: [id number] EXAMS: CPT CODE: [id number] XR FLUORO NDL 82577 FLUOROSCOPICALLY GUIDED right prosthetic knee joint ASPIRATION [...] Katherine Cardoso MD CC: Mono Messina Technologist: RT PILAR(R) Transcribed D/ (1010) ChristieGVG [facility] NAME: AVERY MEDINA [address] [place] [address] PHYS: CAROLTERENCE David HoffmannMayuriMonokristen Espinoza Kiley : 1945 AGE: 73 SEX: M [place] [id number] LOC: Y.RAD PHONE #: [phone] EXAM DATE: 09/15/2018 STATUS: DEP CLI FAX #: [phone] RAD #: D/C DT PAGE 1 Signed Report Patient Name: AVERY MEDINA Unit No: [id number] EXAMS: CPT CODE: [id number] XR FLUORO NDL 85051 (Continued) Orig Print D/T: S: 09/21/2018 (1013) [facility] NAME: AVERY MEDINA [address] [place] [address] PHYS: Mono Murphy : 1945 AGE: 73 SEX: M [place] [id number] LOC: Y.RAD PHONE #: [phone] EXAM DATE: 09/15/2018 STATUS: DEPCLI FAX #: [phone] RAD #: D/C DT PAGE 2 [address]OV[address] FLD CELL CT/DIFF 2018-09-15 11:48:00 Test Item Value Reference Range Interpretation Comments SYNOVIAL FLD COLOR (test BLOODY LT. YELLOW A code = COLSY) SYNOVIAL FLD APPEARANCE BLOODY CLEAR (test code = APPSY) SYNOVIAL FLD VOLUME (test 2 mL code = VOLSY) SYNOVIAL FLD WBC (test code 1552.000 /MM3 0-200 H = WBCSY) SYNOVIAL FLD RBC (test code 2884514.000 /mm3 0-2 H = RBCSY) SYNOVIAL FLD POLY (test code 6 % 0-25 N = POLYSY) SYNOVIAL FLD LYMPHOCYTE 93 % 0-78 H (test code = LYMPHSY) SYNOVIAL FLD MONOCYTE (test 1 % 0-71 N code = MONOSY) SPECIMEN COMMENT: ASPIRATION OF THE RT KNEE DONE BY DR. JC FLD CELL [id number] 10:56:00 Test Item Value Reference Range Interpretation Comments SYNOVIAL FLD COLOR (test LT. YELLOW code = COLSY) SYNOVIAL FLD APPEARANCE CLEAR (test code = APPSY) SYNOVIAL FLD VOLUME (test mL code = VOLSY) SYNOVIAL FLD WBC (test code 1552.000 /MM3 0-200 H = WBCSY) SYNOVIAL FLD RBC (test code 9778262.000 /mm3 0-2 H = RBCSY) SPECIMEN COMMENT: ASPIRATION OF THE RT KNEE DONE BY DR. SANCHES W/AUTO DIFF 2018-09-08 13:44:00 Test Item Value Reference Range Interpretation Comments WHITE BLOOD CELL (test code = WBC) 4.7 K/mm3 5.7-10.5 L RED BLOOD CELL (test code = RBC) 4.92 M/mm3 4.2-5.4 N HEMOGLOBIN (test code = HGB) 15.9 g/dL 12-16 N HEMATOCRIT (test code = HCT) 48.7 % 37-47 H MEAN CELL VOLUME (test code = MCV) 99 fL 80-98 H MEAN CELL HGB (test code = MCH) 32.3 pg 27-34 N MEAN CELL HGB CONCENTRATION (test 32.6 g/dL 30.8-34.1 N code = MCHC) RED CELL DISTRIBUTION WIDTH (test 13.2 % 11-16 N code = RDW) PLT (test code = PLT) 182 K/mm3 130-400 N MEAN PLATELET VOLUME (test code = 10.8 fL 8.9-12.1 N MPV) NEUTROPHIL % (test code = NT%) 51.9 % 45-70 N LYMPHOCYTE % (test code = LY%) 39.2 % 20-40 N MONOCYTE % (test code = MO%) 7.4 % 3-10 N EOSINOPHIL % (test code = EO%) 0.2 % 1-5 L BASOPHIL % (test code = BA%) 1.1 % 0.0-1.1 N NEUTROPHIL # (test code = NT#) 2.45 K/mm3 2.00-7.50 N LYMPHOCYTE # (test code = LY#) 1.85 K/mm3 1.50-4.00 N MONOCYTE # (test code = MO#) 0.35 K/mm3 0.2-0.8 N EOSINOPHIL # (test code = EO#) 0.01 K/mm3 0.04-0.4 L BASOPHIL # (test code = BA#) 0.05 K/mm3 0.02-0.10 N MANUAL DIFF REQUIRED (test code = NO MANUAL DIFF MDIFF) NUCLEATED RED BLOOD CELL (test 0 % 0-0 N code = NRBC) SED [id number] 13:44:00 Test Item Value Reference Range Interpretation Comments SED RATE (test code = SEDW) 5 mm/hr 0-15 N C REACTIVE [id number] 13:00:00 Test Item Value Reference Range Interpretation Comments C REACTIVE PROTEIN (test code = < 0.2 mg/dL <0.9 CRP) CBC W/AUTO [id number] 12:39:00 Test Item Value Reference Range Interpretation Comments WHITE BLOOD CELL (test code = WBC) 4.7 K/mm3 5.7-10.5 L RED BLOOD CELL (test code = RBC) 4.92 M/mm3 4.2-5.4 N HEMOGLOBIN (test code = HGB) 15.9 g/dL 12-16 N HEMATOCRIT (test code = HCT) 48.7 % 37-47 H MEAN CELL VOLUME (test code = MCV) 99 fL 80-98 H MEAN CELL HGB (test code = MCH) 32.3 pg 27-34 N MEAN CELL HGB CONCENTRATION (test 32.6 g/dL 30.8-34.1 N code = MCHC) RED CELL DISTRIBUTION WIDTH (test 13.2 % 11-16 N code = RDW) PLT (test code = PLT) 182 K/mm3 130-400 N MEAN PLATELET VOLUME (test code = 10.8 fL 8.9-12.1 N MPV) NEUTROPHIL % (test code = NT%) 51.9 % 45-70 N LYMPHOCYTE % (test code = LY%) 39.2 % 20-40 N MONOCYTE % (test code = MO%) 7.4 % 3-10 N EOSINOPHIL % (test code = EO%) 0.2 % 1-5 L BASOPHIL % (test code = BA%) 1.1 % 0.0-1.1 N NEUTROPHIL # (test code = NT#) 2.45 K/mm3 2.00-7.50 N LYMPHOCYTE # (test code = LY#) 1.85 K/mm3 1.50-4.00 N MONOCYTE # (test code = MO#) 0.35 K/mm3 0.2-0.8 N EOSINOPHIL # (test code = EO#) 0.01 K/mm3 0.04-0.4 L BASOPHIL # (test code = BA#) 0.05 K/mm3 0.02-0.10 N MANUAL DIFF REQUIRED (test code = NO MANUAL DIFF MDIFF) NUCLEATED RED BLOOD CELL (test 0 % 0-0 N code = NRBC) SED [id number] 12:39:00 Test Item Value Reference Range Interpretation Comments SED RATE (test code = SEDW) mm/hr 0-15
[2022-04-23] MEDS ORDERED: IBUPROFEN 400 MG TAB ONE (18:11)
[2022-04-23] MEDS ORDERED: MORPHINE 4 MG/ML SYR ONE ×2 (18:11→21:20)
[2022-04-23] MEDS ORDERED: ONDANSETRON 4 MG/2 ML VIAL ONE (18:11)
[2022-04-23 18:26] LABS: Urine Blood Negative (Negative); Urine Glucose Negative (Negative); Urine Protein Negative (Negative); Urine Specific Gravity 1.025 (1.005-1.030)
--- NOTE | 2022-04-23 18:53 | RAD REPORT ---
EXAM DESCRIPTION: RAD - Chest Single View - 04/23/2022 6:31 pm CLINICAL HISTORY: FEVER COMPARISON: Chest Pa And Lat (2 Views) dated 03/17/2022; CHEST SINGLE VIEW dated 02/16/2011; CHEST PA AND LAT 2 VIEW dated 05/01/2009; CHEST SINGLE VIEW dated 05/09/2004 FINDINGS: Lines: None. Lungs: Linear opacities at the left lung base. Pleural: No significant pleural effusions or pneumothorax. Cardiac: The heart size is within normal limits. Mediastinum: Within normal limits. Bones: No acute fractures. Other: None IMPRESSION: Linear opacities at the left lung base could represent atelectasis and/or pneumonia.
[2022-04-23 19:27] LABS: Protime INR 1.15
[2022-04-23 19:30] LABS: Albumin 3.4 g/dL (3.4-5.0); Bilirubin Direct 0.5 mg/dL (0-0.2); Bilirubin Total 1.3 mg/dL (0.2-1.0); Magnesium 2.2 mg/dL (1.8-2.4); Protein, Total 7.9 g/dL (6.4-8.2); Troponin High Sensitivity 5.2 pg/mL (<58.9)
[2022-04-23 19:32] LABS: Absolute Lymphocytes (CBC) 1.2 K/uL (0.7-4.9); Hematocrit 41.5 % (39.6-49.0); Lymphocytes % 17.7 % (15.3-44.8); MCV 97.2 fL (80-100); MPV 9.1 fL (7.6-11.3); RBC Red Blood Cell Count 4.27 M/uL (4.33-5.43)
[2022-04-23] MEDS ORDERED: NA CHLORIDE 0.9% 500 ML ONE (19:46)
[2022-04-23] MEDS ORDERED: ACETAMINOPHEN 500 MG TAB ONE (19:46)
--- NOTE | 2022-04-23 21:14 | RAD REPORT ---
EXAM DESCRIPTION: CTChest Abdomen Pelvis W Cont - 04/23/2022 8:52 pm CLINICAL HISTORY: fever COMPARISON: No comparisons TECHNIQUE: CT of the chest, abdomen, and pelvis was performed. All CT scans are performed using dose optimization technique as appropriate and may include automated exposure control or mA/KV adjustment according to patient size. FINDINGS: Thorax: Chest Wall: No abnormal mass Lungs: Atelectasis is present at the left lung base. No evidence of a consolidative pneumonia. Pleura: No effusions or pneumothorax. Little/Mediastinum: No lymphadenopathy. Aorta/Pulmonary Arteries: Unremarkable Heart: Normal size. Abdomen/Pelvis: Liver: No acute abnormality or suspicious lesions. Biliary: No biliary ductal dilatation. Stomach: No significant focal abnormality. Duodenum: No significant focal abnormality. Pancreas: No significant abnormality. Spleen: No significant abnormality. Adrenal: No suspicious lesions. Kidney/ureter: No hydronephrosis. No renal calculi. Too small to characterize and/or benign appearing renal lesions are noted. Retroperitoneum: No retroperitoneal adenopathy. Vascular: No aneurysm. Bowel: No significant focal abnormality. Peritoneum: No ascites or free air. Prior ventral hernia repair. Bladder: Mild circumferential bladder wall thickening. Reproductive: Prostatomegaly. Bones: No acute fracture. Edema at the right shoulder. Reportedly, the patient had recent surgery. Other: n/a IMPRESSION: 1. Airspace disease at the left lung base most likely representing atelectasis. No evide nce of edema or convincing evidence of pneumonia. 2. No acute findings within the abdomen or pelvis.
[2022-04-23 21:40] LABS: Blood Morphology Comment NOT SEEN (NOT SEEN); Platelet Estimate ADEQ; White Blood Cell Scan OK (OK)
[2022-04-23 22:20] LABS: Urine Crystals Unidentified Few /HPF (None Seen); Urine Mucus Slight /HPF (None Seen); Urine RBC <5 /HPF (None Seen)
[2022-04-23] MEDS ORDERED: levoFLOXacin 750 MG TAB ONE (22:20)
--- NOTE | 2022-04-23 22:33 | ER ---
Nurse's Notes [facility] Name: Noah Medina Age: 76 yrs Sex: Male : 1945 Arrival Date: 04/23/2022 Time: 15:57 Bed 19 Private MD: Diagnosis: Pneumonia due to other specified bacteria Presentation: 04/23 16:31 Chief complaint:. Chief complaint: Patient states: had shoulder sx 04/05/22, called and kr3 spoke with sx dr office about the 101.6 temp at home and was directed to the ER. Coronavirus screen: Vaccine status: Patient reports receiving the 2nd dose of the covid vaccine. Client denies travel out of the [place] in the last 14 days. Ebola Screen: Patient denies travel to an Ebola-affected area in the 21 days before illness onset. Initial Sepsis Screen: Does the patient meet any 2 criteria? No. Patient's initial sepsis screen is negative. Does the patient have a suspected source of infection? Yes: Other: recent sx. Risk Assessment: Do you want to hurt yourself or someone else? Patient reports no desire to harm self or others. Onset of symptoms was April 22, 2022. 16:31 Method Of Arrival: Ambulatory kr3 16:31 Acuity: CLAIRE 3 kr3 17:48 Initial Sepsis Screen: Does the patient meet any 2 criteria?. [id number] Triage Assessment: 16:38 General: Appears in no apparent distress. uncomfortable, Behavior is calm, cooperative, kr3 appropriate for age. Pain: Complains of pain in right shoulder. Historical: - Allergies: 16:36 No Known Allergies; kr3 - PMHx: 16:36 Hypertension; kr3 - PSHx: 16:36 knee replacement x5; rotator cuff sx; kr3 - Immunization history:: Adult Immunizations not up to date. - Social history:: Smoking status: Patient denies any tobacco usage or history of. Screenin:28 Abuse screen: Denies threats or abuse. Nutritional screening: No deficits noted. bm7 Tuberculosis screening: No symptoms or risk factors identified. Fall Risk None identified. Assessment: 19:16 Reassessment: No changes from previously documented assessment. bm7 20:12 Reassessment: Patient appears in no apparent distress at this time. Patient and/or bm7 family updated on plan of care and expected duration. Pain level reassessed. Patient is alert, oriented x 3, equal unlabored respirations, skin warm/dry/pink. Vital Signs: 16:31 BP 156 / 77; Pulse 109; Resp 18; Temp 100.3; Pulse Ox 97% on R/A; Weight 95.25 kg; kr3 Height 5 ft. 9 in. (175.26 cm); Pain 10/10; 18:28 BP 124 / 78; Pulse 121; Resp 18; Temp 102.6(TE); Pulse Ox 100% on R/A; Pain 10/10; bm7 19:16 BP 130 / 72; Pulse 101; Resp 20; Temp 102.9(TE); Pulse Ox 100% on R/A; Pain 10/10; bm7 19:21 BP 121 / 61; Pulse 117; Pulse Ox 94% on R/A; ja4 20:12 BP 103 / 68; Pulse 106; Resp 17; Pulse Ox 93% on R/A; bm7 21:22 BP 100 / 72; Pulse 95; Resp 18; Temp 98.6(TE); Pulse Ox 100% on R/A; Pain 5/10; bm7 16:31 Body Mass Index 31.01 (95.25 kg, 175.26 cm) kr3 ED Course: 15:57 Patient arrived in ED. mr 16:22 Suman Sykes PA is PHCP. cp 16:22 Aaron Simth MD is Attending Physician. cp 16:36 Triage completed. kr3 16:39 Arm band placed on left wrist. kr3 17:27 Mounika Lao, RN is Primary Nurse. iw 18:20 Missed attempt(s): 22 gauge in right upper arm. Bleeding controlled, band aid applied, ll1 catheter tip intact. 18:28 Patient has correct armband on for positive identification. Placed in gown. Call light bm7 in reach. Side rails up X 1. Adult w/ patient. Client placed on continuous cardiac and pulse oximetry monitoring. NIBP monitoring applied. quality assurance monitor body on. 18:28 Missed attempt(s): 22 gauge in left antecubital area. Bleeding controlled, band aid bm7 applied, catheter tip intact. 18:33 XRAY Chest (1 view) In Process Unspecified. EDMS 19:18 Initial lab(s) drawn, by ED staff, sent to lab. First set of blood cultures drawn by ED bm7 staff, Urine collected: clean catch specimen, alexa colored, EKG done, by parking enforcement technician. reviewed by Aaron Smith MD. Patient maintains SpO2 saturation greater than 95% on room air. 19:56 Diet: Patient given juice. Tolerated well. bm7 20:[address] bm7 20:54 Chest Abdomen Pelvis W Cont In Process Unspecified. EDOK 23:05 No provider procedures requiring assistance completed. IV discontinued, intact, bm7 bleeding controlled, No redness/swelling at site. Pressure dressing applied. Administered Medications: 19:06 Drug: morphine 4 mg Route: IVP; Infused Over: 4 mins; Site: right antecubital; bm7 21:06 Follow up: Response: Pain is unchanged, physician notified bm7 19:06 Drug: Zofran (Ondansetron) 4 mg Route: IVP; Site: right antecubital; bm7 21:06 Follow up: Response: No adverse reaction bm7 19:06 Drug: Ibuprofen 800 mg Route: PO; bm7 19:56 Follow up: Response: Temperature is unchanged bm7 19:45 Drug: NS 0.9% 500 ml Route: IV; Rate: bolus; Site: right antecubital; bm7 23:08 Follow up: IV Status: Completed infusion; IV Intake: 500ml 7 19:45 Drug: Tylenol 1000 mg Route: PO; bm7 21:22 Follow up: Response: Temperature is decreased bm7 22:10 Drug: LevaQUIN (levofloxacin) 750 mg Route: PO; bm7 23:08 Follow up: Response: No adverse reaction [facility] Medication: 18:28 VIS not applicable for this client. bm7 Intake: 23:08 IV: 500ml; Total: 500ml. bm7 Outcome: 22:33 Discharge ordered by . cp 23:05 Discharged to home ambulatory, with family. bm7 23:05 Condition: improved 23:05 Discharge instructions given to patient, family, Instructed on discharge instructions, follow up and referral plans. medication usage, Demonstrated understanding of instructions, follow-up care, medications, Prescriptions given X 2. 23:09 Patient left the ED. [facility] Signatures: Dispatcher [employer] [facility] Polly Dunne Irene, RN RN Suman Harp PA PA cp Lewis, Lynsay, RN RN ll1 Dali Osuna, RN RN bm7 Dana Kasper, RN RN jg9 Ana Petersen, RN RN kr3 Corwin Garber, RN RN ja4
--- NOTE | 2022-04-23 22:33 | EDPHYS ---
Physician Documentation [facility] Name: Noah Medina Age: 76 yrs Sex: Male : 1945 Arrival Date: 04/23/2022 Time: 15:57 Bed 19 Private MD: ED Physician Aaron Smith HPI: 04/23 18:00 This 76 yrs old Male presents to ER via Ambulatory with complaints of Fever. cp 18:00 The patient reports fever, with an emergency department temperature of 100.3 degrees cp Fahrenheit. 18:00 Onset: The symptoms/episode began/occurred yesterday. cp 18:00 Associated signs and symptoms: Pertinent positives: increased right shoulder pain. cp 18:00 Patient reports having right shoulder surgery on 04-05-2022 without complications. Has cp had increased pain today. Historical: - Allergies: 16:36 No Known Allergies; kr3 - PMHx: 16:36 Hypertension; kr3 - PSHx: 16:36 knee replacement x5; rotator cuff sx; kr3 - Immunization history:: Adult Immunizations not up to date. - Social history:: Smoking status: Patient denies any tobacco usage or history of. ROS: 18:05 Constitutional: Positive for body aches, chills, fever, Negative for poor PO intake. cp 18:05 Eyes: Negative for injury, pain, redness, and discharge. cp 18:05 ENT: Negative for drainage from ear(s), ear pain, sore throat, difficulty swallowing, difficulty handling secretions. 18:05 Neck: Negative for pain with movement, pain at rest, stiffness. 18:05 Cardiovascular: Negative for chest pain, edema. 18:05 Respiratory: Negative for cough, shortness of breath, wheezing. 18:05 Abdomen/GI: Negative for abdominal pain, nausea, vomiting, and diarrhea, anorexia. 18:05 Back: Negative for pain at rest, pain with movement. 18:05 MS/extremity: Positive for pain, of the right shoulder, Negative for paresthesias. 18:05 Neuro: Negative for altered mental status, dizziness, headache, weakness. 18:05 All other systems are negative. Exam: 18:20 Constitutional: The patient appears in no acute distress, alert, awake, cp non-diaphoretic, non-toxic, well developed, well nourished, uncomfortable. 18:20 Head/Face: Normocephalic, atraumatic. cp 18:20 Eyes: Periorbital structures: appear normal, Conjunctiva: normal, no exudate, no injection, Sclera: no appreciated abnormality, Lids and lashes: appear normal, bilaterally. 18:20 ENT: External ear(s): are unremarkable, Nose: is normal, Mouth: Lips: moist, Oral mucosa: pink and intact, moist, Posterior pharynx: Airway: no evidence of obstruction, patent. 18:20 Neck: ROM/movement: is normal, is supple, without pain, no range of motions limitations, no meningismus. 18:20 Chest/axilla: Inspection: normal. 18:20 Cardiovascular: Rate: tachycardic, Rhythm: regular, Edema: is not appreciated, JVD: is not appreciated. 18:20 Respiratory: the patient does not display signs of respiratory distress, Respirations: normal, no use of accessory muscles, no retractions, labored breathing, is not present, Breath sounds: bronchial sounds, that are mild, are heard in the left posterior lower lobe, right posterior middle lobe and right posterior lower lobe, decreased breath sounds, are not appreciated, stridor, is not appreciated, wheezing: is not appreciated. 18:20 Abdomen/GI: Inspection: abdomen appears normal, Bowel sounds: active, all quadrants, Palpation: abdomen is soft and non-tender, in all quadrants. 18:20 Musculoskeletal/extremity: Extremities: noted in the right shoulder: decreased ROM, pain, overlying skin warm dry without erythema, surgical wounds without drainage, Pulses: noted to be 2+ in the right radial artery and left radial artery. 18:20 Neuro: Orientation: to person, place \\T\\ time. Mentation: is normal, Sensation: no obvious gross deficits. 19:15 ECG was reviewed by the Attending Physician. cp Vital Signs: 16:31 BP 156 / 77; Pulse 109; Resp 18; Temp 100.3; Pulse Ox 97% on R/A; Weight 95.25 kg; kr3 Height 5 ft. 9 in. (175.26 cm); Pain 10/10; 18:28 BP 124 / 78; Pulse 121; Resp 18; Temp 102.6(TE); Pulse Ox 100% on R/A; Pain 10/10; bm7 19:16 BP 130 / 72; Pulse 101; Resp 20; Temp 102.9(TE); Pulse Ox 100% on R/A; Pain 10/10; bm7 19:21 BP 121 / 61; Pulse 117; Pulse Ox 94% on R/A; ja4 20:12 BP 103 / 68; Pulse 106; Resp 17; Pulse Ox 93% on R/A; bm7 21:22 BP 100 / 72; Pulse 95; Resp 18; Temp 98.6(TE); Pulse Ox 100% on R/A; Pain 5/10; bm7 16:31 Body Mass Index 31.01 (95.25 kg, 175.26 cm) kr3 MDM: 17:28 Patient medically screened. cp 22:30 Data reviewed: vital signs, nurses notes, lab test result(s), EKG, radiologic studies, cp CT scan, plain films. 22:30 Test interpretation: by ED physician or midlevel provider: ECG, plain radiologic cp studies. Counseling: I had a detailed discussion with the patient and/or guardian regarding: the historical points, exam findings, and any diagnostic results supporting the discharge/admit diagnosis, lab results, radiology results, the need for outpatient follow up, a family practitioner, to return to the emergency department if symptoms worsen or persist or if there are any questions or concerns that arise at home. Response to treatment: the patient's symptoms have markedly improved after treatment, and as a result, I will discharge patient. ED course: VSS. Patient appears non-toxic and no signs of respiratory distress. Will discharge to home for continued monitoring. 04/23 17:53 Order name: Basic Metabolic Panel; Complete Time: 19:59 cp 04/23 20:26 Interpretation: Normal except: GLUC 113; GFR 77. cp 04/23 17:53 Order name: CBC with Diff; Complete Time: 21:48 cp 04/23 20:26 Interpretation: Normal except: RBC 4.27. cp 04/23 17:53 Order name: LFT's; Complete Time: 19:59 cp 04/23 20:26 Interpretation: Normal except: BILIT 1.3; BILID 0.5; GLOB 4.5; A/G 0.8. cp 04/23 17:53 Order name: Magnesium; Complete Time: 19:59 cp 04/23 17:53 Order name: NT PRO-BNP; Complete Time: 19:59 cp 04/23 17:53 Order name: PT-INR; Complete Time: 19:59 04/23 17:53 Order name: Troponin HS; Complete Time: 19:59 04/23 20:26 Interpretation: Reviewed. 04/23 17:53 Order name: Lactate; Complete Time: 19:59 04/23 20:27 Interpretation: LAC 1.6; Reviewed. 04/23 17:53 Order name: Blood Culture Adult (2) 04/23 17:53 Order name: Urine Microscopic Only 04/23 17:55 Order name: Influenza Screen (a \\T\\ B) 04/23 17:55 Order name: COVID-19 SARS RT PCR (Document "Date of Onset" if Symptomatic) 04/23 18:26 Order name: Urine Dipstick-Ancillary; Complete Time: 19:59 EDMS 04/23 17:53 Order name: XRAY Chest (1 view); Complete Time: 19:59 04/23 17:53 Order name: EKG; Complete Time: 17:55 04/23 17:53 Order name: Cardiac monitoring; Complete Time: 17:58 04/23 17:53 Order name: EKG - Nurse/Tech; Complete Time: 19:12 04/23 17:53 Order name: IV Saline Lock; Complete Time: 17:58 04/23 17:53 Order name: Labs collected and sent; Complete Time: 17:58 04/23 19:59 Order name: CT Chest, Abdomen, Pelvis - W/Contrast 04/23 20:04 Order name: Chest Abdomen Pelvis W Cont; Complete Time: 21:28 EDMS 04/23 21:40 Order name: CBC Smear Scan; Complete Time: 21:48 EDMS 04/23 21:49 Order name: INCENTIVE SPIROMETRY 04/23 17:53 Order name: O2 Per Protocol; Complete Time: 17:58 04/23 17:53 Order name: O2 Sat Monitoring; Complete Time: 17:58 04/23 17:53 Order name: Urine Dipstick-Ancillary (obtain specimen); Complete Time: 19:11 cp EC:15 Rate is 116 beats/min. Rhythm is regular. MA interval is normal. QRS interval is cp normal. QT interval is normal. T waves are Inverted in leads III, aVR. Interpreted by me. Reviewed by me. Administered Medications: 19:06 Drug: morphine 4 mg Route: IVP; Infused Over: 4 mins; Site: right antecubital; bm7 21:06 Follow up: Response: Pain is unchanged, physician notified bm7 19:06 Drug: Zofran (Ondansetron) 4 mg Route: IVP; Site: right antecubital; bm7 21:06 Follow up: Response: No adverse reaction bm7 19:06 Drug: Ibuprofen 800 mg Route: PO; bm7 19:56 Follow up: Response: Temperature is unchanged bm7 19:45 Drug: NS 0.9% 500 ml Route: IV; Rate: bolus; Site: right antecubital; bm7 23:08 Follow up: IV Status: Completed infusion; IV Intake: 500ml bm7 19:45 Drug: Tylenol 1000 mg Route: PO; bm7 21:22 Follow up: Response: Temperature is decreased bm7 22:10 Drug: LevaQUIN (levofloxacin) 750 mg Route: PO; bm7 23:08 Follow up: Response: No adverse reaction bm7 Disposition Summary: 04/23/22 22:33 Discharge Ordered Location: Home cp Problem: new cp Symptoms: have improved cp Condition: Stable cp Diagnosis - Pneumonia due to other specified bacteria cp Followup: cp - With: Private Physician - When: 2 - 3 days - Reason: Recheck today's complaints Discharge Instructions: - Discharge Summary Sheet cp - Community-Acquired Pneumonia, Adult cp Forms: - Medication Reconciliation Form cp - Thank You Letter cp - Antibiotic Education cp - Prescription Opioid Use cp Prescriptions: - levofloxacin 750 mg Oral tablet - take 1 tablet by ORAL route once daily for 7 days continue taking evening of cp 04/24/2022; 6 tablet; Refills: 0, Product Selection Permitted - Ibuprofen 800 mg Oral Tablet - take 1 tablet by ORAL route every 8 hours As needed take with food; 30 tablet; cp Refills: 0, Product Selection Permitted Signatures: Dispatcher [employer] EDMS Suman Sykes PA PA cp McCarthy, Brittany, RN RN bm7 Ana Petersen RN RN kr3 Corrections: (The following items were deleted from the chart) 20:54 20:52 The patient reports fever, with an emergency department temperature of 100.3 cp degrees Fahrenheit, cp 04/24 22:52 22:39 Constitutional: The patient appears in no acute distress, alert, awake, cp non-diaphoretic, non-toxic, well developed, well nourished, uncomfortable, cp
[2022-04-25 07:46] VITALS: TEMP 102.9
[2022-04-25 08:23] VITALS: BP 121/61; O2SAT 94
--- NOTE | 2022-04-25 15:58 | EKG ---
Test Date: 2022-04-23 Test Time: 19:11:20 Physical Therapist Clinic Director: LASHELL MEASUREMENT RESULTS: Intervals: Rate: 116 VA: 168 QRSD: 84 QT: 310 QTc: 430 [place]: P: 31 VA: 168 QRS: -21 T: 0 INTERPRETIVE STATEMENTS: Sinus tachycardia Cannot rule out Anterior infarct, age undetermined Abnormal ECG Compared to ECG 03/17/2022 13:31:54 Myocardial infarct finding now present Sinus bradycardia no longer present Electronically Signed On 04-25-22 15:55:08 CDT by Osmany Gibson
== END 2022-04-23 23:09 | disposition home or self-care (01) ==
LOC: ER 15:53
DX: J15.8 Pneumonia due to other specified bacteria (principal); Z20.822 Contact with and (suspected) exposure to COVID-19; I10 Essential (primary) hypertension
CPT/HCPCS: 96361; 93005; 87040 ×2; 85025; 80048; 36415; 83735; 85610; 80076; 83605; 84484; 83880; 87804 ×2; 71260; 74177; 71045; 96375; 96374; 99285; U0003; Q9967; J7050; J2405; 81003; 81015